=== PATIENT | male | born 1940 | race Caucasian/White ===

== ENCOUNTER → 2018-06-27 09:31 | Outpatient (CLI) | payer MEDICARE, OTHER, SELFPAY ==
--- NOTE | 2018-06-27 | DI.MRI.S_ITS ---
PROCEDURE: MR LUMBAR SPINE WO CON INDICATIONS: LOW BACK PAIN TECHNIQUE: Noncontrast sagittal T1 spin echo and T2 fast echo, sagittal STIR, axial T1 and T2 fast spin echo through the lumbar spine. In cases with scoliosis, additional coronal T2 fast spin echo may be performed. COMPARISON: None. FINDINGS: Image quality: Excellent. Alignment and Curvature: There is normal bony alignment. Bone Marrow: Marrow is of normal overall signal. There is 18 mm hypointensity on T1/T2 in the L2 vertebral body. No acute vertebral body compression fractures. Spinal Cord: Conus medullaris terminates at the L1 level. Visualized cord demonstrates normal signal and size. Paraspinous Soft Tissues: No paravertebral masses. Bilateral renal hyperintensities are present consistent with cysts. Discs: Moderate desiccation is present throughout the lumbar spine most severe at L5-S1. L1-L2: Minimal disc bulge without spinal stenosis or foraminal narrowing. L2-L3: Minimal disc bulge with a right asymmetric location causing compromise of the right lateral recess. There is mild to moderate right and minimal left foraminal narrowing with facet and ligamentum flavum hypertrophy. L3-L4: Mild disc bulge with mild to moderate spinal stenosis. Minimal to mild bilateral foraminal narrowing with facet and ligamentum flavum hypertrophy. L4-L5: Mild disc bulge with moderate spinal stenosis. Mild bilateral foraminal narrowing with facet and ligamentum flavum hypertrophy. L5-S1: Mild disc bulge with moderate spinal stenosis. Moderate bilateral foraminal narrowing with facet and ligamentum flavum hypertrophy. IMPRESSION: 1. Multilevel degenerative changes most prominent at L5-S1 as above. 2. Low attenuation focus within the L2 vertebral body. Overall signal is not characteristic of hemangioma. However, further evaluation with contrast study or bone scan is recommended, as etiology such as atypical hemangioma or potentially lesion such as neoplastic disease cannot be excluded. Dictated by: Geni Fields M.D. on 06/27/2018 at 13:28 Approved by: Geni Fields M.D. on 06/27/2018 at 13:56
== END ==
PROVIDERS: Visit Provider Orthopaedic Surgery
DX: M47.817 Spondylosis without myelopathy or radiculopathy, lumbosacral region (principal); M47.816 Spondylosis without myelopathy or radiculopathy, lumbar region; M48.07 Spinal stenosis, lumbosacral region; M48.061 Spinal stenosis, lumbar region without neurogenic claudication; M51.27 Other intervertebral disc displacement, lumbosacral region; M51.26 Other intervertebral disc displacement, lumbar region
CPT/HCPCS: 72148

== ENCOUNTER 2018-07-05 11:49 | Emergency (ER) | payer MEDICARE, OTHER, SELFPAY ==
[2018-07-05] VITALS (7 sets, daily range): BP systolic 125–158; BP diastolic 62–82; PULSE 57–67; RESP 13–22; TEMP 36.8; O2SAT 97–99; BMI 33.2
[2018-07-05] MEDS: SODIUM CHLORIDE 0.9% 1,000 ML 150 ML IV (12:07)
[2018-07-05 12:08] LABS: Add Manual Diff / Slide Review NO; Basophils Absolute Auto 0 /uL (0-100); Basophils Percent Auto 0.6 % (0-2); Eosinophils Absolute Auto 0 /uL (0-450); Eosinophils Percent Auto 0.4 % (2-4); Hematocrit 44.2 % (41-53); Hemoglobin 15.7 g/dL (13.5-17.5); Lymphocytes Absolute Auto 1200 /uL (1100-4500); Mean Corpuscular HGB Conc 35.4 % (30-36); Mean Corpuscular Hemoglobin 33.7 PG (26-34); Mean Corpuscular Volume 95.3 fL (80-100); Monocytes Absolute Auto 600 /uL (0-900); Monocytes Percent Auto 8.4 % (3-14); Neutrophils Absolute Auto 4700 /uL (1500-7000); Neutrophils Percent Auto 71.6 % (50-75); Platelet Count 192 X10^3/uL (150-400); Red Blood Cell Count 4.64 X10^6/uL (4.5-5.9); Red Cell Distribution Width 14.3 % (11.6-14.8); White Blood Cell Count 6.6 X10^3/uL (4.5-11.0)
[2018-07-05 12:20] LABS: BUN Creatinine Ratio 18.8 (6-22); Blood Urea Nitrogen 15 mg/dL (9-20); Calcium 9.3 mg/dL (8.4-10.2); Carbon Dioxide 29 mmol/L (22-32); Chloride 95 mmol/L (98-107); Estimated Glomerular Filt Rate > 60.0 mL/min (>60); Glucose 183 mg/dL (80-110); HEMOLYSIS 23 (0-50); Potassium 3.7 mmol/L (3.4-5.1); Sodium 137 mmol/L (137-145)
[2018-07-05 12:32] LABS: Troponin I < 0.012 ng/mL (0.01-0.034)
--- NOTE | 2018-07-05 13:01 | PC.NURSE ---
pt reports, woke up at 200am, getting out of bed, developed severe vertigo, crawled into the bathroom, back to bed and able to sleep, woke up at 8am still felling lightheaded. denies injuries. hx of stroke 2000 with no deficit. had left great toe ingrown 1/2 nail removed yesterday.
--- NOTE | 2018-07-05 13:19 | DI.CT.S_ITS ---
PROCEDURE: CT HEAD/BRAIN WO CON INDICATIONS: vertigo TECHNIQUE: Noncontrast 4.5 mm thick angled axial sections acquired from the foramen magnum to the vertex, with coronal and sagittal reformats. For radiation dose reduction, the following was used: automated exposure control, adjustment of mA and/or kV according to patient size. COMPARISON: None. FINDINGS: Image quality: Diagnostic. CSF spaces: Basal cisterns are patent. No extra-axial fluid collections. Ventricles are mildly prominent with corresponding parenchymal volume loss. Brain: No midline shift. No intracranial masses or hemorrhage. Garcia-white matter interface is normal. Areas of low-attenuation are seen within the periventricular white matter of the supratentorial brain. Skull and face: Calvarium and visualized facial bones are intact, without suspicious lesions. Sinuses: Visualized sinuses and mastoids are clear. IMPRESSION: 1. No acute intracranial hemorrhage. 2. Mild chronic small vessel ischemic changes and parenchymal volume loss. Dictated by: Shree Agudelo M.D. on 07/05/2018 at 12:47 Approved by: Shree Agudelo M.D. on 07/05/2018 at 12:48
--- NOTE | 2018-07-12 11:10 | ED_ITS ---
HPI - Dizziness General Chief Complaint: Dizziness Stated Complaint: DIZZY Time Seen by Provider: 07/05/18 11:58 Source: patient Mode of arrival: ambulatory Limitations: no limitations History of Present Illness HPI Narrative: Patient arrives with a friend complains of dizziness that started early this morning. Patient states he woke up in the night to go to the bathroom, and when he stood up, he suddenly felt as though the room was spinning. Patient states that he made it to the bathroom then went back to bed, but when he got up this morning for the day, he was still dizzy. Patient states that it is worse with certain head movements and with change of position. He states that if he is just sitting in the bed not moving, he does not feel dizzy. Patient denies any history of this previously. No headache. No focal neurologic deficits. No nausea or vomiting. no recent illness of any kind. Patient states he is active and that he has very few limitations to his activities generally. No other complaints at this time. Related Data Home Medications Medication Instructions Recorded Confirmed atorvastatin 40 mg PO DAILY 07/05/18 07/05/18 carvedilol 25 mg PO BID 07/05/18 07/05/18 chlorthalidone 25 mg PO DAILY 07/05/18 07/05/18 erythromycin 1 applic OPHTHALMIC (EYE) 07/05/18 07/05/18 DIRECTED felodipine 5 mg PO DAILY 07/05/18 07/05/18 folic acid 1 mg PO DAILY 07/05/18 07/05/18 methotrexate sodium 07/05/18 metronidazole [Metrogel] 07/05/18 omeprazole 20 mg PO DAILY 07/05/18 07/05/18 Previous Rx's Medication Instructions Recorded meclizine 25 mg PO BID PRN #10 tab 07/05/18 Allergies Allergy/AdvReac Type Severity Reaction Status Date / Time No Known Drug Allergies Allergy Verified 07/05/18 11:53 Review of Systems Constitutional Denies chills, Denies fever(s), Denies lethargy and Denies weakness Eyes Denies change in vision, Denies eye discharge, Denies irritation and Denies loss of vision ENT Ears, Nose, Mouth, and Throat: Denies change in voice, Reports vertigo, Reports dizziness, Denies neck pain and Denies sore throat Cardiovascular Denies chest pain, Denies irregular heart rhythm, Denies lightheadedness, Denies palpitations, Denies dyspnea, Denies dyspnea on exertion and Denies orthopnea Respiratory Denies cough, Denies dyspnea, Denies dyspnea on exertion and Denies wheezing Gastrointestinal Gastrointestinal: Denies abdominal pain, Denies change in bowel habits, Denies diarrhea, Denies nausea and Denies vomiting Genitourinary Denies hematuria, Denies flank pain, Denies urinary incontinence and Denies urinary urgency Musculoskeletal Denies neck pain Integumentary/Breasts Denies pruritus, Denies erythema, Denies rash and Denies wounds Neurologic Denies confusion, Reports vertigo, Reports dizziness, Denies loss of vision and Denies weakness Psychiatric Denies anxiety, Denies confusion, Denies depression, Denies homicidal ideation and Denies suicidal ideation Endocrine Denies palpitations Hematologic/Lymphatic Denies easy bruising Allergic/Immunologic Denies wheezing [facility] Medical History (Updated 07/12/18 @ 11:13 by Geovanna Herrera MD) Hyperlipidemia (Acute) HTN (hypertension) (Acute) Surgical History (Updated 07/12/18 @ 11:13 by Geovanna Herrera MD) No pertinent past surgical history (Acute) Social History (Updated 07/12/18 @ 11:14 by Geovanna Herrera MD) Smoking Status: Never smoker during the past year weight has: remained stable well-balanced diet: daily or most days Type(s) of exercise: walking Social History (Updated 07/12/18 @ 11:14 by Geovanna Herrera MD) Smoking Status: Never smoker during the past year weight has: remained stable well-balanced diet: daily or most days Type(s) of exercise: walking Exam Narrative Exam Narrative: Patient is found to be very well appearing overall, but does report some dizziness/vertigo with movement of his head or sitting up for exam. He is slightly unsteady on his feet, which he attributes to the spinning sensation. No nystagmus. Initial Vital Signs Initial Vital Signs: Vital Signs Temperature 98.2 F 07/05/18 11:57 Pulse Rate 67 07/05/18 11:57 Respiratory Rate 18 07/05/18 11:57 Blood Pressure 158/82 H 07/05/18 11:57 Pulse Oximetry 99 07/05/18 11:57 Const General: cooperative and well developed Nutritional Appearance: well nourished Orientation: alert, awake, oriented x3 and not confused HENMT Head: normocephalic and atraumatic Ears: external ears normal and TM's normal bilaterally Nose: external nose normal and No nasal discharge Face and sinus: face symmetric and No dry mucous membranes Mouth: oral mucosae normal and moist mucous membranes Teeth and gingiva: dentition normal Eyes General: appearance normal, both eyes and all related structures Eyelids: eyelids normal Conjunctivae: conjunctivae normal Sclera: sclerae normal Pupils: PERRL EOM: EOM intact bilaterally Neck Neck: normal visual inspection, trachea midline, No lymphadenopathy, No midline deformity and No JVD Lymphatic: No lymphedema Chest Chest: normal inspection of the chest Resp Effort & Inspection: normal respiratory effort, able to speak in complete sentences, no respiratory distress and no use of accessory muscles Auscultation: clear to auscultation bilaterally, no rales, no rhonchi and no wheezes Cardio Rate: regular rate Rhythm: regular rhythm Heart Sounds: no click, no gallops, no murmurs and no rubs Pulses: normal peripheral pulses GI Inspection: non-distended Palpation: soft, no hepatosplenomegaly, No guarding, No pulsatile mass and No tender Auscultation: normal bowel sounds Back/Spine/Pelvis Back: No CVA tenderness Cervical Spine: cervical ROM normal and No pain with cervical ROM Thoracic/Lumbar Spine: thoracic and lumbar spine normal to inspection Skin General: no rashes or lesions noted, No jaundice and No petechiae Neuro General: alert, awake, oriented x3, gait abnormal (Patient has slight gait unsteadiness) and no focal motor deficits Cranial Nerves: CN's II-XI intact bilaterally Cognition: normal cognition Speech: speech normal Motor: muscle tone normal throughout and strength 5/5 throughout Sensory Exam: no sensory deficits noted Coordination: other (Patient's general coordination is intact without limitation) Extrem General: full ROM, no clubbing, cyanosis or edema, no pedal edema and no calf tenderness Psych Appearance: well kempt Mental Status: mental status grossly normal Attitude: cooperative Thought Content: normal and suicidality Judgment: judgment good Course Course Narrative: Patient was worked up with labs, EKG, and CT scan of the head, which were generally unremarkable. CT did show evidence of small-vessel disease, but was otherwise without evidence of acute infarct. Patient was treated symptomatically with IV and medications, and was found to be feeling somewhat better after this. He still had some vertigo associated with movement, though this had improved. Patient was able to ambulate on his own, though he was still slightly unsteady on his feet, which he attributed to a ?dizzy? feeling in his head. He still denied weakness in his legs or difficulty coordinating his movements. I discussed with the patient that most likely, his symptoms are due to a benign, peripheral source of vertigo as opposed to central vertigo, and as such, will likely resolve on their own without incident. We have discussed home management of the symptoms, as well as the usual indications for return. Patient's friends are here to take him home. Orders Ordered: Discontinued Medications Sodium Chloride (Normal Saline 0.9%) 1,000 mls @ 150 mls/hr IV CONT AL Last Infusion: 07/05/18 15:09 Dose: 0 mls/hr Admin: 07/05/18 12:07 Dose: 150 mls/hr Vital Signs - 8 hr 07/05/18 11:57 07/05/18 12:30 07/05/18 13:00 Temperature 98.2 F Pulse Rate 67 63 66 Respiratory Rate 18 16 22 Blood Pressure [Left Arm] 158/82 H 133/78 125/62 Pulse Oximetry 99 98 97 MDM - Dizziness Medical Records Attestation: I reviewed the patient's medical records. Lab Data Attestation: I reviewed the patient's lab results. Result diagrams: 07/05/18 12:00 07/05/18 12:00 Lab Results 07/05/18 07/05/18 Range/Units 12:00 12:00 WBC 6.6 (4.5-11.0) X10^3/uL RBC 4.64 (4.5-5.9) X10^6/uL Hgb 15.7 (13.5-17.5) g/dL Hct 44.2 (41-53) % MCV 95.3 (80-100) fL MCH 33.7 (26-34) PG MCHC 35.4 (30-36) % RDW 14.3 (11.6-14.8) % Plt Count 192 (150-400) X10^3/uL Neut % (Auto) 71.6 (50-75) % Lymph % (Auto) 19.0 L (25-40) % [place] % (Auto) 8.4 (3-14) % Eos % (Auto) 0.4 L (2-4) % Baso % (Auto) 0.6 (0-2) % Neut # (Auto) 4700 (9815-7106) /uL Lymph # (Auto) 1200 (0604-9353) /uL [place] # (Auto) 600 (0-900) /uL Eos # (Auto) 0 (0-450) /uL Baso # (Auto) 0 (0-100) /uL Sodium 137 (137-145) mmol/L Potassium 3.7 (3.4-5.1) mmol/L Chloride 95 L (98-107) mmol/L Carbon Dioxide 29 (22-32) mmol/L BUN 15 (9-20) mg/dL Creatinine 0.80 (0.66-1.25) mg/dL Estimated GFR > 60.0 (>60) mL/min BUN/Creatinine Ratio 18.8 (6-22) Glucose 183 H (80-110) mg/dL Calcium 9.3 (8.4-10.2) mg/dL Troponin I < 0.012 (0.01-0.034) ng/mL Imaging Data CT scan - head: Radiologist's impression: PROCEDURE: CT HEAD/BRAIN WO CON INDICATIONS: vertigo TECHNIQUE: Noncontrast 4.5 mm thick angled axial sections acquired from the foramen magnum to the vertex, with coronal and sagittal reformats. For radiation dose reduction, the following was used: automated exposure control, adjustment of mA and/or kV according to patient size. COMPARISON: None. FINDINGS: Image quality: Diagnostic. CSF spaces: Basal cisterns are patent. No extra-axial fluid collections. Ventricles are mildly prominent with corresponding parenchymal volume loss. Brain: No midline shift. No intracranial masses or hemorrhage. Garcia-white matter interface is normal. Areas of low-attenuation are seen within the per iventricular white matter of the supratentorial brain. Skull and face: Calvarium and visualized facial bones are intact, without suspicious lesions. Sinuses: Visualized sinuses and mastoids are clear. IMPRESSION: 1. No acute intracranial hemorrhage. 2. Mild chronic small vessel ischemic changes and parenchymal volume loss. Dictated by: Shree Agudelo M.D. on 07/05/2018 at 12:47 Approved by: Shree Agudelo M.D. on 07/05/2018 at 12:48 ECG Data Attestation: I personally reviewed and interpreted this ECG as follows: Prior ECG tracings: not available for review Interpretation: Interpretation by ED MD: Regular ventricular rhythm with a nor mal rate; KS intervals are normal and correlating well with QRS complexes; no significant ST T wave changes; no prior EKGs available for comparison. In summary, normal sinus rhythm, no signs of acute ischemia as interpreted by ED MD. Discharge Plan Departure Patient Disposition: Home Clinical Impression: Benign paroxysmal positional vertigo Qualifiers: Laterality: unspecified laterality Qualified Code(s): H81.10 - Benign paroxysmal vertigo, unspecified ear Discharge Date/Time: 07/05/18 15:10 Interventions: ED Discharge Assessment Last Done: 07/05/18 15:10 Instructions: DI for Vertigo Activity Restrictions/Additional Instructions: Your labs and CT scan looked good. There is no evidence of an acute stroke or other cause of your symptoms in your brain. However, there is evidence that you have had some mild ischemic (lack of blood flow/oxygen) change in the past, most likely due to clogging of your small arteries. The most important ways to prevent development of a more significant stroke are to eat a low cholesterol diet, to continue your Lipitor and to take an aspirin daily. 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 These can cause stimulation of your movements sensing nerves, resulting in inappropriate signaling to your brain. Generally, this kind of vertigo will calm down on its own, but can reoccur from time to time. If you continue to have problems with it, you will need to follow up with an ENT specialist. Prescriptions: New meclizine 25 mg tablet 25 mg PO BID PRN (Reason: dizziness) Qty: 10 RF: 0 No Action atorvastatin 40 mg tablet 40 mg PO DAILY RF: 0 carvedilol 25 mg tablet 25 mg PO BID RF: 0 felodipine 5 mg tablet extended release 24 hr 5 mg PO DAILY RF: 0 chlorthalidone 25 mg tablet 25 mg PO DAILY RF: 0 methotrexate sodium 2.5 mg tablet RF: 0 erythromycin 5 mg/gram (0.5 %) ointment 1 applic ophthalmic (eye) DIRECTED RF: 0 omeprazole 20 mg capsule,delayed release(DR/EC) 20 mg PO DAILY RF: 0 folic acid 1 mg tablet 1 mg PO DAILY RF: 0 metronidazole [Metrogel] 1 % gel RF: 0 Referrals: Robbie Tejada MD [Primary Care Provider] -
== END 2018-07-05 15:10 | disposition home or self-care (01) ==
PROVIDERS: Emergency Provider Emergency Medicine; PCP Internal Medicine
DX: H81.10 Benign paroxysmal vertigo, unspecified ear (principal)
CPT/HCPCS: 36591; 70450; 80048; 84484; 85025; 93005; 96360; 96361; 99283; 99285

== ENCOUNTER 2019-10-22 19:11 | Inpatient (IN) | payer MEDICARE, OTHER, SELFPAY ==
[2019-10-22] VITALS (11 sets, daily range): BP systolic 149–167; BP diastolic 75–90; PULSE 102–129; RESP 15–30; TEMP 36.9; O2SAT 95–97; BMI 33.2
--- NOTE | 2019-10-22 | DI.ECHO.S_ITS ---
[facility] +---------+ [facility] +---------+ : : [address] : : : : [id number] : : : : Phone: [phone] Echocardiogram Report + + :Name: KALI LEIGH Study Date: 10/23/2019 Height: 72 in : :[facility] Weight: 245 lb : : Gender: Male BSA: 2.3 m2 : :: 1940 Age: 78 yrs BP: 135/87 mmHg: :Reason For Study: RIGHT FRONTAL CVA : :Ordering Physician: Rosio : :Hospitalist Performed By: Romi Jules : :Referring: LOGAN LEONARD : + + Interpretation Summary Left ventricular systolic function remains normal with an estimated ejection fraction of 60 to 65% without any obvious focal wall motion abnormality and appears unchanged from the previous study. There continues to be mild concentric LVH. Diastolic function cannot be accurately assessed although there is some evidence for increased filling pressures. The right ventricle is borderline enlarged with systolic function at the lower limits of normal but appears unchanged from the previous exam. Right ventricular systolic pressure is estimated at 36 mmHg with a CVP of 8 mmHg, and is likely similar to the previous study. The left atrium is mildly enlarged while the right atrium is normal in size. Both have decreased in size since the previous study. There is mild to moderate mitral regurgitation that is slightly more prominent compared to the previous study. There is mild tricuspid regurgitation that is slightly less prominent. The aortic root and ascending aorta are mildly enlarged but similar to the previous study. The aortic arch could not be visualized. The patient was in an irregular rhythm, possibly reflecting atrial fibrillation but clinical correlation is recommended. This was new compared to the previous study. Procedure: A two-dimensional transthoracic echocardiogram with color flow and Doppler was performed. The study quality was technically difficult. Comparison is made with the echocardiogram of 04/14/2015. The patient was in an irregular rhythm during the exam. The heart rate ranged between 62-75 bpm during the study. The patient had occasional PACs during the exam. Left Ventricle: The left ventricle is normal in size. There is mild concentric left ventricular hypertrophy. Left ventricular systolic function is normal without focal wall motion abnormalities. The ejection fraction is estimated to be 60-65%. This is unchanged compared to the previous study. Diastolic function could not be accurately assessed due to contradictory data. Cannot exclude increased filling pressures. Right Ventricle: The right ventricle is at the upper limits of normal in size. Right ventricular systolic function is at the lower limits of normal. This is unchanged compared to the previous study. Atria: The left atrium is mildly dilated. This is decreased compared to the previous study. Right atrial size is normal. There is no Doppler evidence for an interatrial shunt. Mitral Valve: There is mild mitral annular calcification. There is mild to moderate mitral regurgitation. This is slightly more promient compared to the previous study. Aortic Valve: The aortic valve is trileaflet. The aortic valve is slightly calcified. The aortic valve opens well. There is no aortic valve stenosis. There is trace aortic regurgitation. Tricuspid Valve: The tricuspid valve is normal in structure and function. There is mild tricuspid regurgitation. This is slightly less prominent compared to the previous study. The right ventricular systolic pressure is estimated to be at least 36 mmHg based on an estimated right atrial pressure of 8 mm Hg. Pulmonic Valve: The pulmonic valve is not well visualized. There is mild pulmonic regurgitation. This is unchanged compared to the previous study. Great Vessels: The aortic root is mildly dilated. This is unchanged compared to the previous study. The ascending aorta is mild-moderately enlarged. The aortic arch could not be visualized. The IVC is dilated (diameter is greater than 2.1 cm) yet it collapses greater than 50% with a sniff. This suggests a right atrial pressure of 8 mm Hg. Pericardium/ Pleura There is no pericardial effusion. There is no pleural effusion. MMode/2D Measurements & Calculations LVIDd: 4.9 cm LVOT diam: 2.4 cm LVIDs: 3.5 cm Ao root diam: 3.7 cm FS: 29.1 % asc Aorta Diam: 3.8 cm EPSS: 0.34 cm IVSd: 1.1 cm LVPWd: 0.95 cm LV thurman. diameter/BSA (cm/m^2): 2.1 LV sys. diameter/BSA (cm/m^2): 1.5 LA A2 area: 23.6 cm2 RA long axis: 6.0 cm LA A4 area: 25.2 cm2 RA area: 17.9 cm2 LA length (vol): 6.1 cm RA vol: 45.8 ml LA vol: 83.5 ml RA : 19.7 ml/m2 LA vol index: 36.0 ml/m2 IVC diam: 2.1 cm RVD1 (basal): 4.0 cm TAPSE: 1.7 cm Doppler Measurements & Calculations Ao V2 max: 128.4 cm/sec LVOT Max Stuart: 122.3 cm/sec Ao V2 mean: 84.1 cm/sec LV V1 max P.0 mmHg Ao max P.6 mmHg LV V1 VTI: 22.7 cm Ao mean P.3 mmHg AGUSTO(I,D): 3.7 cm2 Ao V2 VTI: 27.2 cm AGUSTO(V,D): 4.2 cm2 sev ratio: 0.84 AGUSTO indexed to BSA (cm^2/m^2): 1.6 MV E max stuart: 109.7 cm/sec TR max stuart: 268.4 cm/sec MV A max stuart: 43.3 cm/sec TR max P.8 mmHg MV E/A: 2.5 PA V2 max: 88.8 cm/sec Med Peak E' Stuart: 5.6 cm/sec PA V2 mean: 54.4 cm/sec E/E' med: 19.6 PA mean P.4 mmHg Lat Peak E' Stuart: 9.3 cm/sec PA pr(Accel): 20.8 mmHg E/E' lat: 11.8 E/e' average: 15.7 MV dec time: 0.18 sec SV(LVOT): 101.1 ml Reading Physician:01:35 PM
--- NOTE | 2019-10-22 19:18 | DI.CT.S_ITS ---
PROCEDURE: CT HEAD/BRAIN WO CON INDICATIONS: altered mental status, stroke symptoms x2 days NO TPA TECHNIQUE: Noncontrast 4.5 mm thick angled axial sections acquired from the foramen magnum to the vertex, with coronal and sagittal reformats. For radiation dose reduction, the following was used: automated exposure control, adjustment of mA and/or kV according to patient size. COMPARISON: [facility], CT, CT HEAD/BRAIN WO CON, 07/05/2018, 13:21. FINDINGS: Image quality: Excellent. CSF spaces: Basal cisterns are patent. No extra-axial fluid collections. The ventricles are symmetric in size and shape. Brain: Hypodensity in the right frontal lobe is consistent with acute cerebral infarction. Possible tiny hemorrhage in the right frontal lobe involving the inferior aspect of the infarcted territory. No intracranial masses. There is moderate cerebral volume loss for age, with resultant ventricular and sulcal prominence. There are moderate periventricular and deep white matter chronic small vessel ischemic changes. There is intracranial internal carotid artery atherosclerosis. Skull and face: Calvarium and visualized facial bones appear intact, without suspicious lesions. Sinuses: Visualized sinuses and mastoids are clear. IMPRESSION: 1. Subacute infarction in right frontal lobe. Possible tiny foci of early hemorrhagic transformation in the inferior aspect of the infarcted territory. No significant mass effect or midline shift. 2. Cerebral volume loss and chronic microvascular ischemic changes. The result was discussed with Dr. Aguilera. Dictated by: Yari Casas M.D. on 10/22/2019 at 20:01 Approved by: Yari Casas M.D. on 10/22/2019 at 20:06
--- NOTE | 2019-10-22 19:24 | ED.NEUROSD ---
HPI - Neuro Symptoms/Deficit General Chief Complaint: Neuro Symptoms/Deficit Stated Complaint: spouse thinks possible stroke Time Seen by Provider: 10/22/19 19:11 Source: patient and family Mode of arrival: Ambulatory Limitations: no limitations History of Present Illness HPI Narrative: 78-year-old male nonsmoker with history of hypertension reports a remote history of an irregular rhythm presents with a neighbor who is concerned he may have had a stroke. He was last seen normal about 2 days ago and when he went to meet his neighbor today he seemed confused and was struggling to communicate. He denies any blurred vision or facial droop. He denies any numbness, tingling or weakness of extremities. He denies any recent injury or trauma. He has had no change in medications or diet. He denies any history of stroke, heart attack, or blood thinner. Location: other History of same: No Severity: mild Relieving factors: none On Anticoagulants: No Associated symptoms: confusion Treatments Prior to Arrival: none Related Data Home Medications Medication Instructions Recorded Confirmed atorvastatin 40 mg PO DAILY 07/05/18 07/05/18 carvedilol 25 mg PO BID 07/05/18 07/05/18 chlorthalidone 25 mg PO DAILY 07/05/18 07/05/18 erythromycin 1 applic OPHTHALMIC (EYE) 07/05/18 07/05/18 DIRECTED felodipine 5 mg PO DAILY 07/05/18 07/05/18 folic acid 1 mg PO DAILY 07/05/18 07/05/18 methotrexate sodium 07/05/18 metronidazole [Metrogel] 07/05/18 omeprazole 20 mg PO DAILY 07/05/18 07/05/18 Previous Rx's Medication Instructions Recorded meclizine 25 mg PO BID PRN #10 tab 07/05/18 Allergies Allergy/AdvReac Type Severity Reaction Status Date / Time No Known Drug Allergies Allergy Verified 10/22/19 19:22 Review of Systems Constitutional Constitutional: Denies chills, Denies fatigue, Denies fever(s), Denies frequent falls, Denies lethargy and Denies weakness Eyes Eyes: Denies change in vision, Denies eye discharge, Denies irritation and Denies loss of vision ENT Ears, Nose, Mouth, and Throat: Denies change in voice, Denies dizziness, Denies neck pain, Denies sore throat and Denies throat swelling Cardiovascular Cardiovascular: Denies chest pain, Denies irregular heart rhythm, Denies lightheadedness, Denies palpitations, Denies dyspnea, Denies dyspnea on exertion and Denies orthopnea Respiratory Respiratory: Denies cough, Denies dyspnea, Denies dyspnea on exertion and Denies wheezing Gastrointestinal Gastrointestinal: Denies abdominal pain, Denies change in bowel habits, Denies diarrhea, Denies nausea and Denies vomiting Musculoskeletal Musculoskeletal: Denies neck pain and Denies numbness Integumentary/Breasts Skin/Breast: Denies pruritus, Denies erythema, Denies rash and Denies wounds Neurologic Neurologic: Reports abnormal speech, Denies behavioral changes, Denies confusion, Denies dizziness, Denies frequent falls, Denies loss of vision, Denies numbness and Denies weakness Psychiatric Psychiatric: Denies anxiety, Denies behavioral changes, Denies confusion, Denies depression, Denies homicidal ideation and Denies suicidal ideation Endocrine Endocrine: Denies fatigue, Denies flushing and Denies palpitations Hematologic/Lymphatic Hematologic/Lymphatic: Denies easy bruising Allergic/Immunologic Allergic/Immunologic: Denies urticaria, Denies throat swelling and Denies wheezing Patient History Medical History (Updated 10/23/19 @ 00:58 by EDDIE Napoles) GERD (gastroesophageal reflux disease) (Acute) HTN (hypertension) (Chronic) Hyperlipidemia (Acute) Surgical History No pertinent past surgical history (Acute) Social History household members: none Smoking Status: Never smoker during the past year weight has: remained stable well-balanced diet: daily or most days Type(s) of exercise: walking Smoking Status: Never smoker Exam Narrative Exam Narrative: GENERAL: [78] year old patient appears stated age. Well-nourished, well-developed patient, in mild distress. HEAD: Atraumatic. Normocephalic. EYES: Pupils equal round and reactive. Extraocular motions intact. No scleral icterus. No injection or drainage. ENT: Nose without bleeding, purulent drainage. Throat without erythema, tonsillar hypertrophy or exudate. Airway patent. NECK: Trachea midline. Non tender CARDIOVASCULAR: Regular rate and rhythm without murmurs, gallops, or rubs. RESPIRATORY: Clear to auscultation. Breath sounds equal bilaterally. No wheezes, rales, or rhonchi. GASTROINTESTINAL: Abdomen soft, non-tender, nondistended. EXTREMITIES: No edema or joint tenderness. BACK: Nontender without deformity or crepitance. No flank tenderness. NEURO: AOx3. SKIN: No rash or erythema of visible areas Initial Vital Signs Initial Vital Signs: Vital Signs Temperature 98.4 F 10/22/19 19:22 Pulse Rate 102 H 10/22/19 19:22 Respiratory Rate 15 10/22/19 19:22 Blood Pressure 167/81 H 10/22/19 19:22 Pulse Oximetry 95 10/22/19 19:22 Scores NIH Stroke Scale Level of Conciousness: Alert, keenly responsive Ask month/age: Answers both questions correctly. Open/close eyes, close hand: Performs both tasks correctly Best gaze horizontal: Normal Visual eric: No visual loss Facial palsy: Normal symetrical movement Left arm drift: No drift for full 10 sec Right arm drift: No drift for full 10 sec Left leg drift: No drift for full 10 sec Right leg drift: No drift for full 10 sec Limb ataxia: Absent Sensory on face/arms/legs: Normal, no sensory loss Best language: Mild to moderate, slurs some words Dysarthria: Normal Extinction or inattention: No abnormality Total NIH Stroke scale score: 1 Course Course Course Narrative: patient worked up for stroke, but not TPA or interventional candidate given time frame and lack of large vessel occlusion. Consultation with [facility]. They are in agreement with plan. After discussion of case and viewing images they state mention of possible hemorrhagic conversion on Head CT is very unlikely and should not be considered a reason to go down a different path of treatment and evaluation. Further discussion regarding whether possible meningioma is playing a roll they respond quickly no, this is likely an incidental finding. Orders Ordered: ED Orders 10/22/19 19:18 CT head/brain wo con Stat EKG-12 Lead Stat 10/22/19 19:25 Complete Blood Count AUTO DIFF Stat Comprehensive Metabolic Panel Stat D Dimer Stat Partial Thromboplastin Time Stat Prothrombin Time INR Stat Troponin & CK Cardiac Panel Stat 10/22/19 20:05 CT angio head and neck Stat 10/22/19 20:15 Urine Drug Screen, Rapid Stat Acetaminophen (Tylenol) 650 mg PO Q4HR PRN PRN Reason: Fever/Mild Pain (1-3) Atorvastatin Calcium (Lipitor) 40 mg PO BEDTIME [facility] Last Admin: 10/23/19 01:15 Dose: 40 mg Documented by: BLANCA Sodium Chloride (Normal Saline 0.9%) 1,000 mls @ 150 mls/hr IV CONT [facility] Last Infusion: 10/22/19 22:35 Dose: 0 mls/hr Documented by: Admin: 10/22/19 20:05 Dose: 150 mls/hr Documented by: LOLIS Sodium Chloride (Normal Saline 0.9%) 1,000 mls @ 100 mls/hr IV CONT [facility] Last Admin: 10/23/19 01:16 Dose: 100 mls/hr Documented by: BLANCA Labetalol HCl (Trandate) 10 mg IV Q4HR PRN PRN Reason: Blood Sugar - High Naloxone HCl (Narcan) 0.2 mg IV Q2MIN PRN PRN Reason: Opiate Reversal Ondansetron HCl (Zofran) 4 mg IV Q6HR PRN PRN Reason: Nausea And Vomiting Discontinued Medications Acetaminophen (Tylenol) 650 mg PO Q6HR PRN PRN Reason: Fever/Mild Pain (1-3) Carvedilol (Coreg) 3.125 mg PO NOW ONE Stop: 10/23/19 03:00 Vital Signs Vital signs: Vital Signs - 8 hr 10/22/19 20:00 10/22/19 20:11 10/22/19 20:34 Pulse Rate 126 H 127 H 123 H Respiratory Rate 26 H 25 H Blood Pressure 162/90 H Pulse Oximetry 96 95 97 10/22/19 21:00 10/22/19 21:30 10/22/19 22:00 Pulse Rate 126 H 127 H 128 H Respiratory Rate 22 23 Blood Pressure Pulse Oximetry 96 96 10/22/19 22:10 Pulse Rate 126 H Respiratory Rate 20 Blood Pressure 149/75 H Pulse Oximetry 96 MDM - Neuro Symptoms/Deficit Lab Data Result diagrams: 10/22/19 19:25 10/22/19 19:25 Labs: Lab Results 10/22/19 10/22/19 10/22/19 Range/Units 19:25 19:25 19:25 WBC 10.1 (4.5-11.0) X10^3/uL RBC 4.47 L (4.5-5.9) X10^6/uL Hgb 15.8 (13.5-17.5) g/dL Hct 44.1 (41-53) % MCV 98.6 (80-100) fL MCH 35.4 H (26-34) PG MCHC 35.9 (30-36) % RDW 14.1 (11.6-14.8) % Plt Count 197 (150-400) X10^3/uL Neut % (Auto) 79.1 H (50-75) % Lymph % (Auto) 14.2 L (25-40) % [place] % (Auto) 5.8 (3-14) % Eos % (Auto) 0.5 L (2-4) % Baso % (Auto) 0.4 (0-2) % Neut # (Auto) 8000 H (2774-8852) /uL Lymph # (Auto) 1400 (6880-0235) /uL [place] # (Auto) 600 (0-900) /uL Eos # (Auto) 100 (0-450) /uL Baso # (Auto) 0 (0-100) /uL PT 11.9 (10.1-12.7) SECONDS INR 1.0 (0.9-1.3) APTT 29 (26.4-36.2) SECONDS D-Dimer (<230) ng/mL Sodium 136 L (137-145) mmol/L Potassium 3.5 (3.4-5.1) mmol/L Chloride 98 (98-107) mmol/L Carbon Dioxide 28 (22-32) mmol/L BUN 14 (9-20) mg/dL Creatinine 0.87 (0.66-1.25) mg/dL Estimated GFR > 60.0 (>60) mL/min BUN/Creatinine Ratio 16.1 (6-22) Glucose 177 H (80-110) mg/dL Hemoglobin A1c (4.0-6.0) % Calcium 9.7 (8.4-10.2) mg/dL Total Bilirubin 1.2 (0.2-1.3) mg/dL AST 37 (17-59) IU/L ALT 33 (<50) IU/L Alkaline Phosphatase 98 (38-126) U/L Total Creatine Kinase 55 (55-170) U/L CK-MB (CK-2) TNP CK-MB (CK-2) Rel Index TNP Troponin I < 0.012 (0.01-0.034) ng/mL Total Protein 8.1 (6.3-8.2) g/dL Albumin 4.4 (3.5-5.0) g/dL Globulin 3.7 (1.7-4.1) g/dL Albumin/Globulin Ratio 1.2 (1.0-2.8) U Opiates 300ng/mL cut (Negative) Ur Oxycodone Screen (Negative) Urine Methadone Screen (Negative) Ur Barbiturates Screen (Negative) U Tricyclic Antidepress (Negative) Ur Phencyclidine Scrn (Negative) Ur Amphetamines Screen (Negative) U Methamphetamines Scrn (Negative) Ur MDMA Scrn (Ecstasy) (Negative) U Benzodiazepines Scrn (Negative) Urine Cocaine Screen (Negative) U Marijuana (THC) Screen (Negative) 10/22/19 10/22/19 10/22/19 Range/Units 19:25 19:25 20:15 WBC (4.5-11.0) X10^3/uL RBC (4.5-5.9) X10^6/uL Hgb (13.5-17.5) g/dL Hct (41-53) % MCV (80-100) fL MCH (26-34) PG MCHC (30-36) % RDW (11.6-14.8) % Plt Count (150-400) X10^3/uL Neut % (Auto) (50-75) % Lymph % (Auto) (25-40) % [place] % (Auto) (3-14) % Eos % (Auto) (2-4) % Baso % (Auto) (0-2) % Neut # (Auto) (2479-1360) /uL Lymph # (Auto) (8545-2691) /uL [place] # (Auto) (0-900) /uL Eos # (Auto) (0-450) /uL Baso # (Auto) (0-100) /uL PT (10.1-12.7) SECONDS INR (0.9-1.3) APTT (26.4-36.2) SECONDS D-Dimer 419 H (<230) ng/mL Sodium (137-145) mmol/L Potassium (3.4-5.1) mmol/L Chloride (98-107) mmol/L Carbon Dioxide (22-32) mmol/L BUN (9-20) mg/dL Creatinine (0.66-1.25) mg/dL Estimated GFR (>60) mL/min BUN/Creatinine Ratio (6-22) Glucose (80-110) mg/dL Hemoglobin A1c 6.1 H (4.0-6.0) % Calcium (8.4-10.2) mg/dL Total Bilirubin (0.2-1.3) mg/dL AST (17-59) IU/L ALT (<50) IU/L Alkaline Phosphatase (38-126) U/L Total Creatine Kinase (55-170) U/L CK-MB (CK-2) CK-MB (CK-2) Rel Index Troponin I (0.01-0.034) ng/mL Total Protein (6.3-8.2) g/dL Albumin (3.5-5.0) g/dL Globulin (1.7-4.1) g/dL Albumin/Globulin Ratio (1.0-2.8) U Opiates 300ng/mL cut Negative (Negative) Ur Oxycodone Screen Negative (Negative) Urine Methadone Screen Negative (Negative) Ur Barbiturates Screen Negative (Negative) U Tricyclic Antidepress Negative (Negative) Ur Phencyclidine Scrn Negative (Negative) Ur Amphetamines Screen Negative (Negative) U Methamphetamines Scrn Negative (Negative) Ur MDMA Scrn (Ecstasy) Negative (Negative) U Benzodiazepines Scrn Negative (Negative) Urine Cocaine Screen Negative (Negative) U Marijuana (THC) Screen Negative (Negative) Point of Care Testing Glucose POC 169 Urine Dip Bedside Urine Glucose Negative Bedside Urine Bilirubin - Negative Urine Specific Felt 1.015 Bedside Urine Occult Blood - Negative Bedside Urine pH 7.0 Bedside Urine Protein - Negative Bedside Urine Urobilinogen 1+ 2mg Bedside Urine Nitrite - Negative Bedside Urine Leukocytes - Negative Esterase Imaging Data CT scan - head: Radiologist's Impression: Chart Viewer Diagnostics DATE TYPE STATUS REF RANGE/AUTHOR Hx 10/22/19 20:05 Maco Casas 10/22/19 19:18 Maco Casas 07/05/18 13:19 Shree Agudelo 07/05/18 11:49 06/27/18 00:00 Geni Fields Dennis J 78, M1940 ADM IN, AC 215 -1 182.88cm 111.5kg BMI: 33.3kg/m? Search Chart No Data to Display ONSET Today 01:00 Brandon Duron 78 M [address] [address] [address] Scan Report Signed Patient: Brandon Duron JMR#: [id number] : [id number]:[id number] Age/Sex: 78 / MDate of Service: 10/22/19 Loc: ED Accession Number: [id number] Procedure: CT head/brain wo con Ordering Provider: Willian Aguilera D.O. PROCEDURE: CT HEAD/BRAIN WO CON INDICATIONS: altered mental status, stroke symptoms x2 days NO TPA TECHNIQUE: Noncontrast 4.5 mm thick angled axial sections acquired from the foramen magnum to the vertex, with coronal and sagittal reformats. For radiation dose reduction, the following was used: automated exposure control, adjustment of mA and/or kV according to patient size. COMPARISON: [facility], CT, CT HEAD/BRAIN WO CON, 07/05/2018, 13:21. FINDINGS: Image quality: Excellent. CSF spaces: Basal cisterns are patent. No extra-axial fluid collections. The ventricles are symmetric in size and shape. Brain: Hypodensity in the right frontal lobe is consistent with acute cerebral infarction. Possible tiny hemorrhage in the right frontal lobe involving the inferior aspect of the infarcted territory. No intracranial masses. There is moderate cerebral volume loss for age, with resultant ventricular and sulcal prominence. There are moderate periventricular and deep white matter chronic small vessel ischemic changes. There is intracranial internal carotid artery atherosclerosis. Skull and face: Calvarium and visualized facial bones appear intact, without suspicious lesions. Sinuses: Visualized sinuses and mastoids are clear. IMPRESSION: 1. Subacute infarction in right frontal lobe. Possible tiny foci of early hemorrhagic transformation in the inferior aspect of the infarcted territory. No significant mass effect or midline shift. 2. Cerebral volume loss and chronic microvascular ischemic changes. The result was discussed with Dr. Aguilera. Dictated by: Yari Casas M.D. on 10/22/2019 at 20:01 Approved by: Yari Casas M.D. on 10/22/2019 at 20:06 CTA Head/Neck: Radiologist's Impression: Chart Viewer Diagnostics DATE TYPE STATUS REF RANGE/AUTHOR Hx 10/22/19 20:05 YesseniaMaco 10/22/19 19:18 YesseniaMaco 07/05/18 13:19 Shree Agudelo 07/05/18 11:49 06/27/18 00:00 Geni Fields Dennis J 78, M1940 ADM IN, AC 215 -1 182.88cm 111.5kg BMI: 33.3kg/m? Search Chart No Data to Display ONSET Today 01:00 Brandon Duron 78 M 1940 [place] [address] CT Scan Report Signed Patient: Brandon Duron JMR#: [id number] : [id number]:[id number] Age/Sex: 78 / MDate of Service: 10/22/19 Loc: ED Accession Number: [id number] Procedure: CT angio head and neck Ordering Provider: Willian Aguilera D.O. PROCEDURE: CT ANGIO HEAD AND NECK INDICATIONS: stroke, possible hemorrhagic conversion TECHNIQUE: Pre-contrast 4.5 mm thick sections acquired from the foramen magnum to the vertex. After the administration of intravenous contrast, 1 mm thick sections acquired from the aortic arch through the [place] of [place]. Post-contrast 4.5 mm thick sections then re-acquired from the foramen magnum to the vertex. 3-dimensional mfiyshl-svdiecpau-gnifapyazy (MIP) and/or volume rendering reformats were acquired of the central intracranial vasculature and neck separately. COMPARISON: [facility], CT, CT HEAD/BRAIN WO CON, 07/05/2018, 13:21. [facility], CT, CT HEAD/BRAIN WO CON, 10/22/2019, 19:32. FINDINGS: Image quality: Excellent. BRAIN: CSF spaces: Ventricles are normal in size and shape. Basal cisterns are patent. No extra-axial fluid collections. Brain: There is a 1.5 x 2.0 x 2.1 cm point cm extra-axial enhancing mass in the right frontal area, most likely a meningioma. Hypodensity in the right frontal lobe is consistent with acute infarct. No definitive intracranial hemorrhage. No midline shift. No intracranial bleeds or masses. Garcia-white matter interface appears intact. Skull and face: Calvarium and facial bones appear intact, without suspicious lesions. Orbits appear normal. Sinuses: Sinuses and mastoids are clear. HEAD CT ANGIOGRAPHY: Anterior circulation: Intracranial internal carotid arteries are normal in size and flow. The flow within the paired anterior cerebral arteries is normal and symmetric. The flow within the middle cerebral arteries is normal and symmetric. The anterior communicating artery is seen. No aneurysms are seen. Posterior circulation: Dominant left vertebral artery. 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 The basilar artery is normal. Flow within the posterior cerebral arteries is normal and symmetric. No aneurysms are seen. NECK CT ANGIOGRAPHY: Carotid system: The great vessels demonstrate a conventional anatomy as they arise from the aortic arch. The origins of the common carotid arteries appear patent. The common carotid arteries demonstrate normal caliber and courses. The bifurcation regions are both widely patent. The internal carotid arteries demonstrate normal calibers and courses. Posterior circulation: The origins of the vertebral arteries both appear widely patent. The more superior extracranial portions of both vertebral arteries also demonstrate normal courses and calibers. They join to form a normal appearing basilar artery. Soft tissues: Visualized neck soft tissues demonstrate no suspicious abnormalities. There is moderate emphysema. There are numerous cervical lymph nodes bilaterally. Largest lymph node in the right neck measures 1 cm. Bones: No suspicious bony lesions. Visualized cervical spine appears normally aligned. Severe degenerative disc disease in cervical spine. IMPRESSION: 1. Hypodensity in the right frontal lobe consistent with subacute infarction. No definitive hemorrhagic transformation in the infarcted territory. Prominent enhancing vessels in the within the is likely secondary to luxury perfusion. 2. A 1.5 x 2.0 x 2.1 cm extra-axial mass in the right frontal area, most likely a meningioma. A MRI is suggested for follow-up evaluation. 3. No high-grade stenosis or occlusion in anterior circulations. 4. Dominant left vertebral artery. 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 No high-grade stenosis or occlusion in posterior circulations. 5. No high-grade stenosis or occlusion in cervical carotid arteries bilaterally. 6. No high-grade stenosis or occlusion in cervical vertebral arteries bilaterally. 7. Numerous cervical lymph nodes bilaterally. The largest lymph node in the right neck measures 1 cm. This finding is nonspecific and may be secondary to infectious, inflammatory or neoplastic etiology. Recommend clinical correlation and follow up. Any quantitative measurements of stenosis were performed using NASCET criteria. Dictated by: Yari Casas M.D. on 10/22/2019 at 21:26 Approved by: Yari Casas M.D. on 10/22/2019 at 21:39 Discharge Plan Departure Patient Disposition: Admitted As Inpatient Clinical Impression: Cerebrovascular accident Qualifiers: CVA mechanism: unspecified Qualified Code(s): I63.9 - Cerebral infarction, unspecified Discharge Date/Time: 10/22/19 22:36 Referrals: Robbie Tejada MD [Primary Care Provider] - Admit Date/Time: 10/22/19 22:20 Admit Provider: Milagros Gibson
[2019-10-22 19:33] LABS: Add Manual Diff / Slide Review NO; Basophils Absolute Auto 0 /uL (0-100); Basophils Percent Auto 0.4 % (0-2); Eosinophils Absolute Auto 100 /uL (0-450); Eosinophils Percent Auto 0.5 % (2-4); Hematocrit 44.1 % (41-53); Hemoglobin 15.8 g/dL (13.5-17.5); Lymphocytes Absolute Auto 1400 /uL (1100-4500); Lymphocytes Percent Auto 14.2 % (25-40); Mean Corpuscular HGB Conc 35.9 % (30-36); Mean Corpuscular Hemoglobin 35.4 PG (26-34); Mean Corpuscular Volume 98.6 fL (80-100); Monocytes Absolute Auto 600 /uL (0-900); Monocytes Percent Auto 5.8 % (3-14); Neutrophils Absolute Auto 8000 /uL (1500-7000); Neutrophils Percent Auto 79.1 % (50-75); Platelet Count 197 X10^3/uL (150-400); Red Blood Cell Count 4.47 X10^6/uL (4.5-5.9); Red Cell Distribution Width 14.1 % (11.6-14.8); White Blood Cell Count 10.1 X10^3/uL (4.5-11.0)
[2019-10-22 19:44] LABS: Prothrombin Time 11.9 SECONDS (10.1-12.7)
[2019-10-22 19:47] LABS: Alanine Aminotransferase 33 IU/L (<50); Albumin 4.4 g/dL (3.5-5.0); Albumin Globulin Ratio 1.2 (1.0-2.8); Alkaline Phosphatase 98 U/L (38-126); Aspartate Aminotransferase 37 IU/L (17-59); BUN Creatinine Ratio 16.1 (6-22); Bilirubin Total 1.2 mg/dL (0.2-1.3); Blood Urea Nitrogen 14 mg/dL (9-20); Calcium 9.7 mg/dL (8.4-10.2); Carbon Dioxide 28 mmol/L (22-32); Chloride 98 mmol/L (98-107); Creatine Kinase 55 U/L (55-170); Estimated Glomerular Filt Rate > 60.0 mL/min (>60); Globulin 3.7 g/dL (1.7-4.1); Glucose 177 mg/dL (80-110); HEMOLYSIS < 15 (0-50); PTT Partial Thromboplastin Tim 29 SECONDS (26.4-36.2); Potassium 3.5 mmol/L (3.4-5.1); Sodium 136 mmol/L (137-145); Total Protein 8.1 g/dL (6.3-8.2)
[2019-10-22 19:59] LABS: Troponin I < 0.012 ng/mL (0.01-0.034)
[2019-10-22] MEDS: SODIUM CHLORIDE 0.9% 1,000 ML 150 ML IV (20:05)
--- NOTE | 2019-10-22 20:05 | DI.CT.S_ITS ---
PROCEDURE: CT ANGIO HEAD AND NECK INDICATIONS: stroke, possible hemorrhagic conversion TECHNIQUE: Pre-contrast 4.5 mm thick sections acquired from the foramen magnum to the vertex. After the administration of intravenous contrast, 1 mm thick sections acquired from the aortic arch through the [place] of [place]. Post-contrast 4.5 mm thick sections then re-acquired from the foramen magnum to the vertex. 3-dimensional scoykbp-itldskjzy-xwkloikovn (MIP) and/or volume rendering reformats were acquired of the central intracranial vasculature and neck separately. COMPARISON: [facility], CT, CT HEAD/BRAIN WO CON, 07/05/2018, 13:21. [facility], CT, CT HEAD/BRAIN WO CON, 10/22/2019, 19:32. FINDINGS: Image quality: Excellent. BRAIN: CSF spaces: Ventricles are normal in size and shape. Basal cisterns are patent. No extra-axial fluid collections. Brain: There is a 1.5 x 2.0 x 2.1 cm point cm extra-axial enhancing mass in the right frontal area, most likely a meningioma. Hypodensity in the right frontal lobe is consistent with acute infarct. No definitive intracranial hemorrhage. No midline shift. No intracranial bleeds or masses. Garcia-white matter interface appears intact. Skull and face: Calvarium and facial bones appear intact, without suspicious lesions. Orbits appear normal. Sinuses: Sinuses and mastoids are clear. HEAD CT ANGIOGRAPHY: Anterior circulation: Intracranial internal carotid arteries are normal in size and flow. The flow within the paired anterior cerebral arteries is normal and symmetric. The flow within the middle cerebral arteries is normal and symmetric. The anterior communicating artery is seen. No aneurysms are seen. Posterior circulation: Dominant left vertebral artery. 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 The basilar artery is normal. Flow within the posterior cerebral arteries is normal and symmetric. No aneurysms are seen. NECK CT ANGIOGRAPHY: Carotid system: The great vessels demonstrate a conventional anatomy as they arise from the aortic arch. The origins of the common carotid arteries appear patent. The common carotid arteries demonstrate normal caliber and courses. The bifurcation regions are both widely patent. The internal carotid arteries demonstrate normal calibers and courses. Posterior circulation: The origins of the vertebral arteries both appear widely patent. The more superior extracranial portions of both vertebral arteries also demonstrate normal courses and calibers. They join to form a normal appearing basilar artery. Soft tissues: Visualized neck soft tissues demonstrate no suspicious abnormalities. There is moderate emphysema. There are numerous cervical lymph nodes bilaterally. Largest lymph node in the right neck measures 1 cm. Bones: No suspicious bony lesions. Visualized cervical spine appears normally aligned. Severe degenerative disc disease in cervical spine. IMPRESSION: 1. Hypodensity in the right frontal lobe consistent with subacute infarction. No definitive hemorrhagic transformation in the infarcted territory. Prominent enhancing vessels in the within the is likely secondary to luxury perfusion. 2. A 1.5 x 2.0 x 2.1 cm extra-axial mass in the right frontal area, most likely a meningioma. A MRI is suggested for follow-up evaluation. 3. No high-grade stenosis or occlusion in anterior circulations. 4. Dominant left vertebral artery. 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 No high-grade stenosis or occlusion in posterior circulations. 5. No high-grade stenosis or occlusion in cervical carotid arteries bilaterally. 6. No high-grade stenosis or occlusion in cervical vertebral arteries bilaterally. 7. Numerous cervical lymph nodes bilaterally. The largest lymph node in the right neck measures 1 cm. This finding is nonspecific and may be secondary to infectious, inflammatory or neoplastic etiology. Recommend clinical correlation and follow up. Any quantitative measurements of stenosis were performed using NASCET criteria. Dictated by: Yari Casas M.D. on 10/22/2019 at 21:26 Approved by: Yari Casas M.D. on 10/22/2019 at 21:39
[2019-10-22 20:30] LABS: UR Morphine/Opiate cutoff 300 Negative (Negative); Ur Creatinine Normal (Normal); Ur Specific Gravity Normal (Normal); Urine Amphetamines Negative (Negative); Urine Barbiturates Negative (Negative); Urine Benzodiazepines Negative (Negative); Urine Cocaine Negative (Negative); Urine MDMA Negative (Negative); Urine Methadone Negative (Negative); Urine Methamphetamines Negative (Negative); Urine Oxycodone Negative (Negative); Urine Phencyclidine Negative (Negative); Urine Tetrahydrocannabinol Negative (Negative); Urine Tricyclic Antidepressant Negative (Negative); Urine pH Normal (Normal)
[2019-10-22 21:40] LABS: D Dimer 419 ng/mL (<230)
[2019-10-22 23:07] LABS: Hemoglobin A1C% w Est Avg Glu 6.1 % (4.0-6.0)
--- NOTE | 2019-10-22 23:30 | PC.NURSE ---
ADMIT TO FLOOR Report received from ED. Patient received at 2235. Pt A&Ox4. Having difficult finding words, communicating thoughts. Reports right frontal headache 06/20. Hypertensive and tachycardic. No orders received as of change of shift. Rapid COVID swab obtained and sent to lab. Report given to MARY MONK.
--- NOTE | 2019-10-22 23:48 | P.HP_ITS ---
History of Present Illness History of Present Illness Date Patient Seen: 10/22/19 Time Patient Seen: 23:49 Chief complaint: Friend thinks possible stroke Narrative: Brandon Duron is an 78-year-old male with hypertension, hyperlipidemia, and GERD, was last seen ?normal? 2 days ago and was brought in by his neighbor today for difficulty speaking. It is difficult to obtain a history from him even though his speech is clear. He does have a delayed response to questions and seems to have word-finding problems currently. Of history is obtained from the medical record and of the current workup. Per the emergency room provider the patient was in his usual state of health as of 2 days ago and was out having dinner with a friend cristal when she noticed that he was having difficulty speaking. She brought him in and the stroke protocol was invoked. I was able to reach who I feel is his significant other, Alyssa and she states that he has not been himself for at least a couple of weeks but it seemed to get really bad over the last 2 days. They were together at her house at about 330 this afternoon and he left in his car where she later found him in his car asleep at the end of her driveway. She banged on the window and woke him up and said we are not going to dinner and till 5:30 p.m. They did have dinner and she told him that she needed to take him to the hospital that he was not acting like his normal self. She said that he did not resist her driving him in his car to the hospital. His friend has a copy of his medication list which is in his wallet now at his home and has contact information for both of his adult children and will be bringing that information to the hospital in the morning. While in the ED, he underwent a brain CT and a CT angio imaging studies. He was found to have a hypodensity in the right frontal lobe consistent with subacute infarction. .Initial CT scan indicated Possible tiny foci of early hemorrhagic transformation in the inferior aspect of the infarcted territory. This was followed by the CTA finding of No definitive hemorrhagic transformation in the infarcted territory. He was also found to have a A 1.5 x 2.0 x 2.1 cm extra-axial mass in the right frontal area, most likely a meningioma and recommended followup MRI. ED NIH score was 1, temp 98.5?, blood pressure 151/90, heart rate 129, respiratory rate 20, oxygen saturation of 90% on room air, weight 111.5, BMI 33.3. WBC 10.1, RBC 4.47, hemoglobin 15.8, platelet count 197, D-dimer was 419 which is normal for his age sodium 136, potassium 3.5, chloride 98, CO2 28, BUN 14, creatinine 0.87, GFR is greater than 60, glucose 177, hemoglobin A1c is 6.1 calcium 9.7, liver enzymes are within normal limits, troponin CK-MB is negative and COVID-19 was negative. Patient History Medical History (Updated 10/23/19 @ 00:58 by EDDIE Napoles) GERD (gastroesophageal reflux disease) (Acute) HTN (hypertension) (Chronic) Hyperlipidemia (Acute) Surgical History No pertinent past surgical history (Acute) Family & Social History Safety & Behavioral: Feels Safe in Current Yes Environment Been Physically Hurt or No Threatened By a Person Tobacco & Substance use: Smoking Status Never smoker alcohol intake frequency holiday/special occasion Substance Use Type does not use Meds Home Medications and Allergies Home Medications Medication Instructions Recorded Confirmed Type atorvastatin 40 mg PO DAILY 07/05/18 07/05/18 History carvedilol 25 mg PO BID 07/05/18 07/05/18 History chlorthalidone 25 mg PO DAILY 07/05/18 07/05/18 History erythromycin 1 applic OPHTHALMIC (EYE) 07/05/18 07/05/18 History DIRECTED felodipine 5 mg PO DAILY 07/05/18 07/05/18 History folic acid 1 mg PO DAILY 07/05/18 07/05/18 History meclizine 25 mg PO BID PRN #10 tab 07/05/18 Rx methotrexate sodium 07/05/18 History metronidazole [Metrogel] 07/05/18 History omeprazole 20 mg PO DAILY 07/05/18 07/05/18 History Allergies Allergy/AdvReac Type Severity Reaction Status Date / Time No Known Drug Allergies Allergy Verified 10/22/19 19:22 Review of Systems Review of Systems ROS: Yes unobtainable due to mental status Exam Vital Signs (past 8 hours): - 10/22/19 19:22 10/22/19 19:25 10/22/19 19:30 Temperature 98.4 F Pulse Rate 102 H 127 H 124 H Respiratory Rate 15 30 H 25 H Blood Pressure 167/81 H Pulse Oximetry 95 96 96 10/22/19 20:00 10/22/19 20:11 10/22/19 20:34 Temperature Pulse Rate 126 H 127 H 123 H Respiratory Rate 26 H 25 H Blood Pressure 162/90 H Pulse Oximetry 96 95 97 10/22/19 21:00 10/22/19 21:30 10/22/19 22:00 Temperature Pulse Rate 126 H 127 H 128 H Respiratory Rate 22 23 Blood Pressure Pulse Oximetry 96 96 10/22/19 22:10 10/22/19 22:35 Temperature 98.5 F Pulse Rate 126 H 129 H Respiratory Rate 20 20 Blood Pressure 149/75 H 151/90 H Pulse Oximetry 96 96 Oxygen Delivery Method Room Air Oxygen Flow Rate 0 Narrative Exam Narrative: Gen: Alert, oriented to self, well-developed 78 y.o. male, appears to be uncomfortable HEENT: normocephalic, atraumatic, conjunctiva clear, sclera non-icteric, oral mucosa pink and moist Neck: supple, full ROM, no JVD, trachea is midline Resp: Lungs CTA, non-labored breathing CV: RRR, no murmur or rubs Abd: soft, non-tender, normoactive BTs Skin: no lesions or rashes, dry and intact Neuro: Alert and oriented X 2. Word finding difficulties and halting speech, otherwise clear. CN 2-8 intact Extremities: moves all 4 extremities, is ambulatory, negative Stewart?s sign Psyche: Pleasant, noted to be compulsive, so fall precautions in place Objective Labs Result Diagrams: 10/22/19 19:25 10/22/19 19:25 Labs: Laboratory Results - last 24 hr 10/22/19 10/22/19 10/22/19 19:25 19:25 19:25 WBC 10.1 RBC 4.47 L Hgb 15.8 Hct 44.1 MCV 98.6 MCH 35.4 H MCHC 35.9 RDW 14.1 Plt Count 197 Neut % (Auto) 79.1 H Lymph % (Auto) 14.2 L Crenshaw % (Auto) 5.8 Eos % (Auto) 0.5 L Baso % (Auto) 0.4 Neut # (Auto) 8000 H Lymph # (Auto) 1400 Crenshaw # (Auto) 600 Eos # (Auto) 100 Baso # (Auto) 0 PT 11.9 INR 1.0 APTT 29 D-Dimer Sodium 136 L Potassium 3.5 Chloride 98 Carbon Dioxide 28 BUN 14 Creatinine 0.87 Estimated GFR > 60.0 BUN/Creatinine Ratio 16.1 Glucose 177 H Hemoglobin A1c Calcium 9.7 Total Bilirubin 1.2 AST 37 ALT 33 Alkaline Phosphatase 98 Total Creatine Kinase 55 CK-MB (CK-2) TNP CK-MB (CK-2) Rel Index TNP Troponin I < 0.012 Total Protein 8.1 Albumin 4.4 Globulin 3.7 Albumin/Globulin Ratio 1.2 U Opiates 300ng/mL cut Ur Oxycodone Screen Urine Methadone Screen Ur Barbiturates Screen U Tricyclic Antidepress Ur Phencyclidine Scrn Ur Amphetamines Screen U Methamphetamines Scrn Ur MDMA Scrn (Ecstasy) U Benzodiazepines Scrn Urine Cocaine Screen U Marijuana (THC) Screen 10/22/19 10/22/19 10/22/19 19:25 19:25 20:15 WBC RBC Hgb Hct MCV MCH MCHC RDW Plt Count Neut % (Auto) Lymph % (Auto) Crenshaw % (Auto) Eos % (Auto) Baso % (Auto) Neut # (Auto) Lymph # (Auto) Crenshaw # (Auto) Eos # (Auto) Baso # (Auto) PT INR APTT D-Dimer 419 H Sodium Potassium Chloride Carbon Dioxide BUN Creatinine Estimated GFR BUN/Creatinine Ratio Glucose Hemoglobin A1c 6.1 H Calcium Total Bilirubin AST ALT Alkaline Phosphatase Total Creatine Kinase CK-MB (CK-2) CK-MB (CK-2) Rel Index Troponin I Total Protein Albumin Globulin Albumin/Globulin Ratio U Opiates 300ng/mL cut Negative Ur Oxycodone Screen Negative Urine Methadone Screen Negative Ur Barbiturates Screen Negative U Tricyclic Antidepress Negative Ur Phencyclidine Scrn Negative Ur Amphetamines Screen Negative U Methamphetamines Scrn Negative Ur MDMA Scrn (Ecstasy) Negative U Benzodiazepines Scrn Negative Urine Cocaine Screen Negative U Marijuana (THC) Screen Negative Assessment & Plan Assessment & Plan narrative: Brandon Duron is it 78-year-old male with what appears to be a history of hypertension, coronary artery disease, and hyperlipidemia who has sustained a right frontal lobe infarct and a possible meningioma in the same area. He will be further assessed with an MRI tomorrow and an echocardiogram. 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 MRI of head in the morning. -allow for permissive hypertension up to 220 systolic -complete echocardiogram -cardiac monitoring and q 8 hour NIH scores -he has passed nursing swallow eval so will be allowed to have a normal low- sodium diet -PT/OT/speech to cm in the morning -aspirin and anti-platelet agents are being held tonight due to inconsistency of reporting of the presence of bleed in the area of the subacute infarct. -Recommend discussion w/daytime radiologist and/or the stroke service to review again. Cognitive impairment unknown if temporary or gradual -Fall precautions in place due to patient being compulsive Essential hypertension, currently under control, present on admission -Recent RX for carvedilol, and felodipine, which are currently being held Hyperlipidemia, chronic, present on admission -Continue home dose of atorvastatin 40 po daily Consults: none at this time Patient is admitted under inpatient status with expected length of stay greater than 2 midnights due to severity of presenting symptoms, risk of adverse event, and complexity of treatment plan. FEN: IV saline lock, low sodium diet, BMP and magnesium in the am. VTE prophylaxis: Bilateral SCDs Dispo: Unknown at this time Code Status: Presumed to be full code until patient appears to clear or son can provide
[2019-10-23] VITALS (12 sets, daily range): BP systolic 131–148; BP diastolic 56–87; PULSE 68–125; RESP 16–22; TEMP 36.7–37.6; O2SAT 94–98; BMI 33.3
[2019-10-23 01:00] LABS: COVID19 -Nasal RAPID Negative (Negative)
[2019-10-23] MEDS: ATORVASTATIN 20 MG TABLET 40 MG PO ×2 (01:15→21:24)
[2019-10-23] MEDS: SODIUM CHLORIDE 0.9% 1,000 ML 100 ML IV (01:16)
[2019-10-23] MEDS: carvediloL 3.125 MG TABLET PO (04:12)
[2019-10-23 05:55] LABS: Add Manual Diff / Slide Review NO; Basophils Absolute Auto 100 /uL (0-100); Basophils Percent Auto 0.5 % (0-2); Eosinophils Absolute Auto 0 /uL (0-450); Eosinophils Percent Auto 0.3 % (2-4); Hematocrit 44.2 % (41-53); Hemoglobin 15.6 g/dL (13.5-17.5); Lymphocytes Absolute Auto 1800 /uL (1100-4500); Lymphocytes Percent Auto 17.6 % (25-40); Mean Corpuscular HGB Conc 35.2 % (30-36); Mean Corpuscular Hemoglobin 35.2 PG (26-34); Mean Corpuscular Volume 100.1 fL (80-100); Monocytes Absolute Auto 900 /uL (0-900); Monocytes Percent Auto 9.2 % (3-14); Neutrophils Absolute Auto 7200 /uL (1500-7000); Neutrophils Percent Auto 72.4 % (50-75); Platelet Count 189 X10^3/uL (150-400); Red Blood Cell Count 4.42 X10^6/uL (4.5-5.9); Red Cell Distribution Width 14.4 % (11.6-14.8)
[2019-10-23 06:03] LABS: Alanine Aminotransferase 29 IU/L (<50); Albumin 4.1 g/dL (3.5-5.0); Albumin Globulin Ratio 1.1 (1.0-2.8); Alkaline Phosphatase 96 U/L (38-126); Aspartate Aminotransferase 31 IU/L (17-59); BUN Creatinine Ratio 14.8 (6-22); Bilirubin Total 1.1 mg/dL (0.2-1.3); Blood Urea Nitrogen 13 mg/dL (9-20); Calcium 9.3 mg/dL (8.4-10.2); Carbon Dioxide 33 mmol/L (22-32); Chloride 97 mmol/L (98-107); Cholesterol 139 mg/dL (140-199); Estimated Glomerular Filt Rate > 60.0 mL/min (>60); Globulin 3.6 g/dL (1.7-4.1); Glucose 150 mg/dL (80-110); HDL Cholesterol 29 mg/dL (40-60); HEMOLYSIS < 15 (0-50); LDL Cholesterol Calculated 77 mg/dL (<100); Potassium 3.6 mmol/L (3.4-5.1); Sodium 136 mmol/L (137-145); Total Protein 7.7 g/dL (6.3-8.2); Triglycerides 166 mg/dL (35-150)
[2019-10-23 06:13] LABS: Troponin I < 0.012 ng/mL (0.01-0.034)
[2019-10-23 07:27] LABS: Thyroid Stimulating Hormone 2.13 uIU/mL (0.47-4.68)
--- NOTE | 2019-10-23 08:00 | DI.MRI.S_ITS ---
PROCEDURE: MR STROKE Pre- and post-contrast brain MRI, non-contrast brain MR angiogram, pre- and postcontrast neck MR angiogram INDICATIONS: right sided frontal CVA TECHNIQUE: Brain: Noncontrast axial T1 spin echo, axial T2 fast spin echo, sagittal and axial FLAIR, coronal T2 fast spin echo, axial gradient echo, axial diffusion and ADC through the brain. After the administration of contrast, axial 3D VIBE of the cranial vasculature and brain. Brain MRA: Non-contrast 3-D time of flight MR angiogram, with multiple jouubmt-cwudkmmdt-maqtrbxlat (MIP) reformats performed. Neck MRA: Axial and sagittal TruFISP through the neck. Coronal dynamic MR angiogram during administration of contrast in the arterial and venous phases, with 3-dimenstional wlpwxoe-sgdskxglp-pblvbvwlth (MIP) reformats constructed from subtraction images. COMPARISON: [facility], CT, CT HEAD/BRAIN WO CON, 10/22/2019, 19:32. [facility], CT, CT ANGIO HEAD AND NECK, 10/22/2019, 20:24. [facility], CT, CT HEAD/BRAIN WO CON, 07/05/2018, 13:21. FINDINGS: Image quality: Excellent. BRAIN: CSF spaces: Ventricles are normal in size and shape. Basal cisterns are patent. No extra-axial fluid collections. Brain: Moderate-sized area of restricted diffusion in the right frontal lobe consistent with acute infarction. There is a moderate amount of surrounding a flare/T2 signal hyperintensity. There is corresponding T1 isointensity and blooming on GRE sequence. Findings consistent with a parenchymal hemorrhagic conversion. No significant extra-axial collection. Right frontal extra-axial homogeneous mass with dural tail measuring 2.6 x 2 x 1.4 cm, (37/22 and 36/106), not significantly changed compared to CT from June 2018. This is consistent with a meningioma. There is periventricular FLAIR signal/T2 hyperintensity consistent with chronic microvascular ischemic disease. A small focus of encephalomalacia in the right basal ganglia consistent with prior infarction. There is minimal FLAIR signal hyperintensity at the splenule of the corpus callosum, (21/13). Brainstem appears normal. Normal intravascular flow voids are present. No abnormal intracranial enhancement. Skull and face: Calvarial marrow signal is normal. Orbits appear normal. Sinuses: Sinuses and mastoids are clear. BRAIN MR ANGIOGRAM: Anterior circulation: Intracranial internal carotid arteries are normal in size and enhancement. The flow within the paired anterior cerebral arteries is normal and symmetric. The flow within the middle cerebral arteries is normal and symmetric. The anterior communicating artery is seen. The posterior communicating arteries are seen but hypoplastic. No stenoses, occlusions, or aneurysms. Posterior circulation: Left vertebral artery is dominant. The right vertebral artery terminates as PICA. The visualized portions of the vertebral arteries demonstrate normal caliber, and join to form a normal appearing basilar artery. The flow within the posterior cerebral arteries is normal and symmetric. No stenoses, occlusions, or aneurysms. NECK MR ANGIOGRAM: Carotids: Left common carotid artery originates off the brachiocephalic artery, variant. The origins of the common carotid arteries appear patent. The calibers and courses of both common carotid arteries are normal. The bifurcation regions appear normal bilaterally. The internal carotid arteries demonstrate normal course and caliber. Posterior circulation: The origins of the vertebral arteries appear patent. More superior portions of both vertebral arteries demonstrate normal course and caliber, and join to form a normal appearing basilar artery. Miscellaneous: Subclavian arteries appear patent. Pre-contrast images through the neck show no soft tissue abnormalities. Extensive degenerative change in the neck. IMPRESSION: BRAIN MRI: 1. Moderate-sized infarct in the right frontal lobe. Findings consistent with parenchymal hemorrhagic conversion and surrounding edema. 2. Chronic microvascular ischemic disease. Prior lacunar infarct in the right basal ganglia. 3. Small right frontal lateral meningioma. 4. Subtle FLAIR signal hyperintensity in the splenium of the corpus callosum of uncertain clinical significance. BRAIN MR ANGIOGRAM: No large vessel occlusion seen. NECK MR ANGIOGRAM: No large vessel occlusion. Dominant left vertebral artery with the right vertebral artery terminating as PICA. Dictated by: Douglas Laird M.D. on 10/23/2019 at 10:59 Approved by: Douglas Laird M.D. on 10/23/2019 at 11:23
--- NOTE | 2019-10-23 08:15 | ST.IPIE ---
Visit Care Team Role Provider Type Robbie Tejada MD Primary Care Provider Non-Staff Specialty: Internal Medicine Address: [address] [place], [address] Email: Willian Aguilera DO Emergency Provider Physician Referring Provider Specialty: Emergency Medicine Address: [address] [place] [address], [address] Email: [email or web address] Napoles Admit Provider Physician Attending Provider Specialty: Internal Medicine Address: [address] [place] [address], [id number] Email: [email or web address] Diagnoses Cerebral infarction, unspecified (10/22/19) Past Medical History (Last Updated 10/23/19 @ 00:58 by EDDIE Napoles) GERD (gastroesophageal reflux disease) (Acute Medical) HTN (hypertension) (Chronic Medical) Hyperlipidemia (Acute Medical) ST IP Initial Evaluation 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 Gibson Reason for Referral Subacute infarction in right frontal lobe Past Medical History Patient History Patient was admitted last night for difficulty communicating and found to have subacute infarct in right frontal lobe on head CT. Patient lives at home alone in [place]. He has two adult children who live out of state . 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 Hearing Hearing Level Normal Vision Vision Status Impaired Comments Wears glasses [place] Language Language(s) Spoken in the Home Greek Occupational Status Occupation Status Retired Subjective Subjective Patient was sitting up in bed eating breakfast and watching TV. He agreed to participate in a speech and language evaluation. - Informal Assessment Receptive Language Normal Yes Expressive Language Normal No Articulation Normal Yes Cognition Normal difficulty to fully assess d/t aphasia Assessment Findings Patient was assessed using the Quick Aphasia Battery. Scores are as follows: Word comprehension - 10/10 Sentence Comprehension - 7.92/ 10 Word Finding - 6.83/10 Grammatical Construction - 6. 75/10 Speech Motor Programming - 7.5 /10 Repetition - 8.3/10 Reading - 8.3/10 QAB Overall - 7.32/10 Scores indicate a moderate impairment of expressive language with relatively normal comprehension most consistent with Broca's aphasia. Patient is able to name pictures, answer yes/no questions and follow simple directions without difficulty; however, he has significant difficulty communicating complex ideas. Articulation was judged to be within normal limits. No paraphasias identified. Cognition was assessed using the SLUMS and patient scored 10/30 indicating significant impairments in short term memory and attention. He also exhibited some repetitive behaviors such as repeating words, repeating numbers when labeling a clock and perseverating on taking bites of food when the container was empty. Recommendations Patient exhibits moderate cognitive linguistic impairments which have negative implications on safety and his ability to perform general tasks and demands independently. Patient will need 24/7 supervision if he discharges home. He would benefit from outpatient or home health speech therapy to target cognitive linguistic skills. - Receptive Language - Expressive Language -
--- NOTE | 2019-10-23 09:35 | PT.IIE ---
Current Diagnoses Cerebral infarction, unspecified (10/22/19) Surgical History (Last Reviewed 10/22/19 @ 21:21 by Willian Aguilera DO) No pertinent past surgical history (Acute) Medical History (Last Updated 10/23/19 @ 00:58 by EDDIE Napoles) GERD (gastroesophageal reflux disease) (Acute) HTN (hypertension) (Chronic) Hyperlipidemia (Acute) Physical Therapy Inpatient Evaluation/Re-Eval M1 PT/OT-IP Prior Functional Status Start: 10/23/19 14:37 Freq: NEEDED Status: Active Protocol: Document 10/23/19 09:35 AB (Rec: 10/23/19 14:49 AB [id number]) Medical Review Prior Functional Status Medical History Reviewed Yes Communication able to make needs known Mobility and Gait pt stated that he is independent with all mobilities and ambulation without AD; pt was still driving prior to admission Social History Household Members none Living Arrangements House Number of Floors (Floors) One Floor Number of Stairs To Enter/Railing? no steps to enter Home Environment High Toilet,Walk in Shower Home Equipment Hand Held Shower,Grab Bars Near Toilet,Grab Bars In Shower M2 PT-IP Current Condition Start: 10/23/19 14:37 Freq: NEEDED Status: Active Protocol: Document 10/23/19 09:35 AB (Rec: 10/23/19 14:49 AB [id number]) Physical Therapy Current Condition Current Condition Evaluation Date 10/23/19 Treatment Diagnosis CVA; difficulty in walking Onset Date 10/22/19 M3 PT-IP Subjective Start: 10/23/19 14:37 Freq: NEEDED Status: Active Protocol: Document 10/23/19 09:35 AB (Rec: 10/23/19 14:49 AB [id number]) Subjective Physical Therapy Visit Type Type Initial Evaluation Visit Start Time 09:35 Visit Stop Time 09:59 Total Visit Minutes 24 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 of 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 Visits 0 Physical Therapy Visit Comments Patient Comments pt is agreeable to do PT Therapy Pain Assessment Pain Present Pain Present Denied Pain M4 PT-IP Mobility and Gait Start: 10/23/19 14:37 Freq: NEEDED Status: Active Protocol: Document 10/23/19 09:35 AB (Rec: 10/23/19 14:49 AB [email or web address]) PT-Bed Mobility Assessment Supine to Sit Supine to Sit Standby Assistance Sit to Supine Sit to Supine Standby Assistance Scooting Scooting to Edge of Bed Standby Assistance PT-Transfer Assessment Sit to and From Stand Sit to and from Stand Standby Assistance Equipment Transfer Assistive Device None,Gait Belt Transfers Transfer Destination Chair Transfer Technique Stand Step Pivot Transfer Ability Level of Assist Standby Assistance,1 Person Assistance,Use of Upper Extremities Gait Assessment Gait Gait Assistance Required: Contact Guard Assist,Minimum Assistance,1 Person Assist Distance (Feet) 20 Able to Maintain Weight Bearing Status Yes During Gait Assistive Devices Assistive Device Gait Belt,Front Wheeled Walker Gait Deviations General Gait Pattern Antalgic,Decreased Stride Length,Decreased Feet Clearance Factors Limiting Gait Function Factors Limiting Gait Function Decreased Activity Tolerance, Decreased Strength,Difficulty Following Directions,Poor Balance,Poor Safety Awareness Comments Gait Comments pt completed supine to sit SBA and was able to sit on EOB SBA. transferred to chair step pivot without AD SBA. ambulated in room without AD CGA to min A and cues. pt with (+) LLE dragging after a few feet of ambulation. pt with unsteady antalgic gait. assessed ambulation using FWW and pt elmer freeman and was able to ambulate ~ 30 ft SBA. pt agreed to use FWW at this time. pt agreed to sit up on chair. positioned on chair. call light and table placed within reach. pt presents with slow reaction time/ responses to questions and instructions. PT-Balance Assessment Sitting Balance and Reactions Static Sitting Balance Ability Good Dynamic Sitting Balance Ability Good Standing Balance and Reactions Static Standing Balance Ability Fair Dynamic Standing Balance Ability Fair Device Used without AD M5 PT-IP Objective Assessments Start: 10/23/19 14:37 Freq: NEEDED Status: Active Protocol: Document 10/23/19 09:35 AB (Rec: 10/23/19 14:49 AB [id number]) Orientation Orientation/Cognition Level of Alertness Alert Orientation Name,Age,Birthday,Month,Year, Place,Situation Safety Awareness Decreased Safety Awareness Gross Range of Motion Lower Extremity ROM Assessment Within Functional Limits Strength Lower Extremity Strength Assessment Left Impaired Hip 4-/5 Knee 4-/5 Ankle 3/5 M6 PT-IP Treatment Start: 10/23/19 14:37 Freq: NEEDED Status: Active Protocol: Document 10/23/19 09:35 AB (Rec: 10/23/19 14:49 AB [email or web address]) Physical Therapy Treatment Education Education Provided Safety M7 PT-IP Assessment and Plan Start: 10/23/19 14:37 Freq: NEEDED Status: Active Protocol: Document 10/23/19 09:35 AB (Rec: 10/23/19 14:49 AB [id number]) PT Summary Assessment and Plan Potential Rehabilitation Potential Good Status of Condition at Evaluation Stable Summary Impairments Pain,ROM,Strength,Balance, Coordination,Sensation,Tone, Cognition,Bed Mobility, Transfers,Gait,Activity Tolerance Assessment Summary pt requiring CGa to min A with ambulation without AD but with LLE weakness and dragging LLE after a few feet of ambultion. recommeding use of FWW at this time. will continue to assess pt's mobility. pt lives alone and d/c plan depending on progress of us somebody will be able to assist him. pt will also benefit from outpt PT. Goals Bed Mobility Goal Independent Transfer Goal Independent,Cane Gait Goal Independent,Cane Gait Distance 200 Other Goals improve ambulation without AD 200 ft I Days to Meet Goals 5 Frequency of Treatment Frequency Of Treatment Twice a Day Treatment Plan Physical Therapy Treatment Plan Bed Mobility Training,Transfer Training,Gait Training, Therapeutic Exercise,Balance Retraining,Discharge Planning, Hot or Cold Pack,Neuromuscular Re-ed,Coordination Retraining Recommendations To Nursing Amount of Assist Needed 1 Person Assist Discharge Recommendations PT Discharge Recommendations Home with Assistance, Outpatient PT Equipment Needed for Home Before FWW/SPC if not safe without AD Discharge Transportation Needs at Discharge Private Vehicle
--- NOTE | 2019-10-23 10:59 | PC.NURSE ---
Assess-Patient is A&Ox2, he is having a hard time remembering some things. Asked if he had children and he states no, asked his significant other and she states that he has a son and daughter. Per Speech Therapist pt does have some moderate expressive dysphagia. He is slightly unsteady on his feet and he is impulsive. He has a chair alarm in place and is visiting with his friend in room. Patient did well with CVA stroke packet and answering questions about different scenarios in pictures and was able to read the sentences well. He has no arm or leg drift and is able to raise all extremities well. His smile is symmetrical, just back from his MRI.
--- NOTE | 2019-10-23 14:46 | OT.IP.EVAL ---
Current Diagnoses Cerebral infarction, unspecified (10/22/19) Past Medical History (Last Updated 10/23/19 @ 00:58 by EDDIE Napoles) GERD (gastroesophageal reflux disease) (Acute) HTN (hypertension) (Chronic) Hyperlipidemia (Acute) Surgical History (Last Reviewed 10/22/19 @ 21:21 by Willian Aguilera DO) No pertinent past surgical history (Acute) Occupational Therapy Inpatient Evaluation/Re-Eval M1 PT/OT-IP Prior Functional Status Start: 10/23/19 18:20 Freq: NEEDED Status: Active Protocol: Document 10/23/19 13:25 [facility] (Rec: 10/23/19 19:09 [facility] [id number]) Medical Review Prior Functional Status Medical History Reviewed Yes Communication able to make needs known Mobility and Gait pt stated that he is independent with all mobilities and ambulation without AD; pt was still driving prior to admission Activities of Daily Living and IADL's Completely independent with all ADL , IADL, and driving. Social History Household Members none Living Arrangements House Number of Floors (Floors) One Floor Number of Stairs To Enter/Railing? no steps to enter Home Environment High Toilet,Walk in Shower Home Equipment Hand Held Shower,Grab Bars Near Toilet,Grab Bars In Shower Additional Social History Comment Pt has a back deck with steps down to the yard. Pt's significant other, Alyssa states prior did not use the steps. Alyssa states notices that the pt has been weaker the past two weeks. M2 OT-IP Current Condition Start: 10/23/19 18:20 Freq: Status: Active Protocol: Document 10/23/19 13:25 [facility] (Rec: 10/23/19 19:09 [facility] [id number]) Occupational Therapy Current Condition Current Condition Evaluation Date 10/23/19 Treatment Diagnosis Subacute infarction of right frontal lobe Diagnosis Onset Date 10/22/19 M3 OT- IP Subjective and Pain Start: 10/23/19 18:20 Freq: Status: Active Protocol: Document 10/23/19 13:25 [facility] (Rec: 10/23/19 19:09 [facility] [id number]) OT- Subjective Occupational Therapy Visit Type Type Initial Evaluation Visit Start Time 13:25 Visit Stop Time 14:46 Total Visit Minutes 86 Occupational Therapy Visit Comments Patient Comments Pt up in the chair and willing to do OT eval. Pt's significant other in the room. Patient/Caregiver Goals To go home. OT Pain Assessment Pain When Pain Assessed At Rest Pain Present Pain Present Denied Pain M4 OT- IP ADL's Start: 10/23/19 18:20 Freq: Status: Active Protocol: Document 10/23/19 13:25 [facility] (Rec: 10/23/19 19:09 [facility] [id number]) OT [id number] Comments OT Self-Feeding Comments Not at meal time. OT ADL-Grooming Comments OT Grooming Comments Able to stand at sink with CGA to wash his hands. OT ADL-Dressing General Eval Lower Body Dressing Ability Moderate Assistance Areas Needing Assistance Underpants/Brief,Socks Comments OT Dressing Comments Pt having difficulty to colby his socks and get brief over his feet. OT ADL-Toileting General Evaluation Toileting Ability Minimal Assistance Areas Needing Assistance Manage Clothing Comments OT Toileting Comments Pt able to stand to urinate. Pt having brief was wet and having to have pt sit back down on the toilet and needing assist to put on another brief due to his decreased balance. OT ADL-Bathing Comments OT Bathing Comments Not at this time. M5 OT- IP IADL's Start: 10/23/19 18:20 Freq: Status: Active Protocol: Document 10/23/19 13:25 [facility] (Rec: 10/23/19 19:09 [facility] [id number]) OT-Instrumental Activities of Daily Living Deficits IADL Deficits Identified Deficits Home Safety Awareness Awareness of Need for Assistance at Home Decreased Awareness Ability to Problem Solve Emergency Unable to Problem Solve Situations Medication Management Medication Management Comments At this time due to his cognitive deficits and poor awareness to his disabilities, pt will require assist at this time. Money Management Money Management Comments At this time due to his cognitive deficits and poor awareness to his disabilities, pt will require assist at this time. Meal Preparation Meal Preparation Comments At this time due to his cognitive deficits and poor awareness to his disabilities, pt will require assist at this time. Roving Machine Operator Roving Machine Operator Comments At this time due to his cognitive deficits and poor awareness to his disabilities, pt will require assist at this time. M6 OT- IP Functional Cognition Start: 10/23/19 18:20 Freq: Status: Active Protocol: Document 10/23/19 13:25 [facility] (Rec: 10/23/19 19:09 [facility] [id number]) Cognitive Factors Limiting Selfcare Function Cognitive Ability Level of Alertness Alert Patient Orientation Name Attention Span Ability Capable of Focused Attention, Capable of Sustained Attention Ability to Follow Commands Able to Follow One Step Commands with Increased Time, Able to Follow One Step Commands with Repetition Memory Description Short Term Impaired,Working Impaired Safety Awareness Underestimates Need for Assistance Problem Solving Ability Unable to Identify Errors, Needs Assist to Identify Solutions Executive Function Ability Unable to Filter Distractions, Unable to Organize Plans, Unable to Remember Details Cognitive Tests SLUMS Per HELICOPTER DISPATCHER, pt scored 10/30. Cognitive Comments Cognitive Assessment Comments Pt not able to complete [place] Making A and jordi a line from 1-2-4 and not able to connect the numbers in sequential order. OT- Vision and Hearing OT- Hearing Assessment OT- Hearing Assessment Use of Hearing Aids OT- Vision Assessment Visual Acuity Glasses All The Time Occular Pursuits WFL Visual Dimas WFL Vision Assessment Comments At this time pt vision appears intact. To continue to assess pt. Pt states noticed lately that he has been bumping into object on the right. M7 OT- IP Mobility and Balance Start: 10/23/19 18:20 Freq: Status: Active Protocol: Document 10/23/19 13:25 [facility] (Rec: 10/23/19 19:09 [facility] [id number]) OT-Transfer Assessment Sit to and From Stand Sit to and from Stand Minimal Assistance Transfers Transfer Ability Minimal Assistance,Moderate Assistance Technique Transfer Destination Chair,Toilet Transfer Technique Stand Step Pivot Devices Transfer Assistive Devices Gait Belt,Front Wheeled Walker Comments Mobility Comments Pt MODA to stand to FWW and at times leans on his heels. Pt needing assist to guide FWW, assist for balance and safety. Pt a high fall risk. OT- Balance Assessment Sitting Balance and Reactions Static Sitting Balance Ability Good Dynamic Sitting Balance Ability Fair Standing Balance and Reactions Static Standing Balance Ability Poor M8 OT- IP Objective Assessments Start: 10/23/19 18:20 Freq: Status: Active Protocol: Document 10/23/19 13:25 [facility] (Rec: 10/23/19 19:09 [facility] [id number]) OT Gross Range of Motion Upper Extremity Range of Motion Assessment Within Functional Limits OT Strength Comments Strength Comments BUE 4-/5 to 4/5 from proximal to distal. OT- Coordination Assessment Upper Extremity Finger to Nose Test Within Functional Limits Comments Coordination Comments Pt right hand 36.5 seconds and and left hand 45 seconds which both rank him below the 10th percentile for his age group. OT-Muscle Tone Assessment Muscle Tone WNL Yes OT Sensation Assessment Comments Summary Comments Pt decreased proprioception for left elbow to wrist and right wrist. M9 OT- IP Assessment and Plan Start: 10/23/19 18:20 Freq: Status: Active Protocol: Document 10/23/19 13:25 [facility] (Rec: 10/23/19 19:09 [facility] [id number]) OT Summary Assessment and Plan Potential Rehabilitation Potential Good Analytic Complexity at Evaluation Low Summary OT Impairments Balance,Functional Cognition, Functional Mobility,Self- Feeding,Grooming,Dressing, Toileting,Bathing,Toilet Transfers,Shower Transfers, Activity Tolerance Progress Towards Goals Slow Progress due to Medical Issues,Slow Progress due to Activity Tolerance,Slow Progress due to Cognition Assessment Summary Pt MOD complexity with s/p CVA and now has cognitive deficits for executive thinking, speed of processing, visual attention, and task switching. Pt has decreased safety awareness, balance and at this time poor insight to his disabilities at this time. Pt would benefit from acute rehab. Pt is far from baseline of being completely independent. Goals Self-Feeding Goal Independent Grooming Goal Independent Dressing Goal Independent Toileting Goal Independent Bathing Goal Independent Toilet Transfer Goal Independent Shower Transfer Goal Independent Days to Meet Goals 20 Frequency of Treatment Frequency Of Treatment Once a Day Treatment Plan OT Treatment Plan ADL Training,Functional Cognition Training,Functional Mobility,Patient/Family Education,Discharge Planning Discharge Recommendations OT Discharge Recommendations SNF Rehab,Acute Rehab Home Equipment Needs Shower chair, FWW Transportation Needs at Discharge Private Vehicle
--- NOTE | 2019-10-23 16:59 | PC.NURSE ---
0725 - The patient's bed alarm was sounding. The patient was found to be standing near the bathroom door. He had both of his SCD cuffs on and the tubing was stretched to the point where he was leaning forward attempting to remove the cuffs. I assisted the patient to remove the SCD's and into the bathroom to void. The patient has difficulties following cueing, which may be related to his ability to hear. One hearing aid in place, CAR BLOCKER assisted patient to place the other. Assist back to bed. Reinforced safety and call light use. Bed alarm placed on sensitive setting.
--- NOTE | 2019-10-23 17:05 | PT-IP ANOTE ---
checked on pt but pt is asleep. attempted to wake up but pt continues to sleep. checked on pt again after ~ 1-2 hours. pt is still asleep. able to wake up but did not open his eyes. informed regarding PT tx and just keep saying yes but when blankets where taken off, pt stated that he does not want to get up. will f/u hannah
--- NOTE | 2019-10-23 17:09 | P.PN_ITS ---
Subjective Subjective Date Patient Seen: 10/23/19 Interval history: The patient is an 78-year-old male who was admitted to the hospital for dysarthria/aphasia. Head CT confirmed a frontal lobe CVA. Patient continues to have dysarthria. He was evaluated today by PT OT and speech. He is quite weak and unable to ambulate independently. In addition he has some cognitive decline which makes an unsafe for him to be home alone Exam Vital Signs (past 8 hours): - 10/23/19 12:00 10/23/19 15:20 Temperature 99.3 F 98.4 F Pulse Rate 68 71 Respiratory Rate 16 18 Blood Pressure 132/61 131/56 L Pulse Oximetry 94 97 Oxygen Delivery Method Room Air Oxygen Flow Rate 0 Narrative Exam Narrative: Pleasant gentleman resting comfortably in no acute distress Lungs: Clear to auscultation Cardiac exam: Regular rate and rhythm normal S1-S2 The abdomen: Soft nontender nondistended Extremities: No edema Neuro exam: NIH score of 2 Cranial nerves 2-12 are intact, Strength is symmetric and equal, Sensation is grossly intact Reflexes are brisk and equal, Gait is not assessed, however PT notes patient is on statin Patient's speech is clear and fluent, he does at times have evidence of dysarthria. Objective Labs Result Diagrams: 10/23/19 05:28 10/23/19 05:28 Labs: Laboratory Results - last 24 hr 10/22/19 10/22/19 10/22/19 19:25 19:25 19:25 WBC 10.1 RBC 4.47 L Hgb 15.8 Hct 44.1 MCV 98.6 MCH 35.4 H MCHC 35.9 RDW 14.1 Plt Count 197 Neut % (Auto) 79.1 H Lymph % (Auto) 14.2 L [place] % (Auto) 5.8 Eos % (Auto) 0.5 L Baso % (Auto) 0.4 Neut # (Auto) 8000 H Lymph # (Auto) 1400 [place] # (Auto) 600 Eos # (Auto) 100 Baso # (Auto) 0 PT 11.9 INR 1.0 APTT 29 D-Dimer Sodium 136 L Potassium 3.5 Chloride 98 Carbon Dioxide 28 BUN 14 Creatinine 0.87 Estimated GFR > 60.0 BUN/Creatinine Ratio 16.1 Glucose 177 H Hemoglobin A1c Calcium 9.7 Magnesium Total Bilirubin 1.2 AST 37 ALT 33 Alkaline Phosphatase 98 Total Creatine Kinase 55 CK-MB (CK-2) TNP CK-MB (CK-2) Rel Index TNP Troponin I < 0.012 Total Protein 8.1 Albumin 4.4 Globulin 3.7 Albumin/Globulin Ratio 1.2 Triglycerides Cholesterol LDL Cholesterol, Calc HDL Cholesterol TSH U Opiates 300ng/mL cut Ur Oxycodone Screen Urine Methadone Screen Ur Barbiturates Screen U Tricyclic Antidepress Ur Phencyclidine Scrn Ur Amphetamines Screen U Methamphetamines Scrn Ur MDMA Scrn (Ecstasy) U Benzodiazepines Scrn Urine Cocaine Screen U Marijuana (THC) Screen COVID-19 PCR 10/22/19 10/22/19 10/22/19 19:25 19:25 20:15 WBC RBC Hgb Hct MCV MCH MCHC RDW Plt Count Neut % (Auto) Lymph % (Auto) [place] % (Auto) Eos % (Auto) Baso % (Auto) Neut # (Auto) Lymph # (Auto) [place] # (Auto) Eos # (Auto) Baso # (Auto) PT INR APTT D-Dimer 419 H Sodium Potassium Chloride Carbon Dioxide BUN Creatinine Estimated GFR BUN/Creatinine Ratio Glucose Hemoglobin A1c 6.1 H Calcium Magnesium Total Bilirubin AST ALT Alkaline Phosphatase Total Creatine Kinase CK-MB (CK-2) CK-MB (CK-2) Rel Index Troponin I Total Protein Albumin Globulin Albumin/Globulin Ratio Triglycerides Cholesterol LDL Cholesterol, Calc HDL Cholesterol TSH U Opiates 300ng/mL cut Negative Ur Oxycodone Screen Negative Urine Methadone Screen Negative Ur Barbiturates Screen Negative U Tricyclic Antidepress Negative Ur Phencyclidine Scrn Negative Ur Amphetamines Screen Negative U Methamphetamines Scrn Negative Ur MDMA Scrn (Ecstasy) Negative U Benzodiazepines Scrn Negative Urine Cocaine Screen Negative U Marijuana (THC) Screen Negative COVID-19 PCR 10/23/19 10/23/19 10/23/19 00:01 05:28 05:28 WBC 10.0 RBC 4.42 L Hgb 15.6 Hct 44.2 MCV 100.1 H MCH 35.2 H MCHC 35.2 RDW 14.4 Plt Count 189 Neut % (Auto) 72.4 Lymph % (Auto) 17.6 L [place] % (Auto) 9.2 Eos % (Auto) 0.3 L Baso % (Auto) 0.5 Neut # (Auto) 7200 H Lymph # (Auto) 1800 [place] # (Auto) 900 Eos # (Auto) 0 Baso # (Auto) 100 PT INR APTT D-Dimer Sodium 136 L Potassium 3.6 Chloride 97 L Carbon Dioxide 33 H BUN 13 Creatinine 0.88 Estimated GFR > 60.0 BUN/Creatinine Ratio 14.8 Glucose 150 H Hemoglobin A1c Calcium 9.3 Magnesium 2.0 Total Bilirubin 1.1 AST 31 ALT 29 Alkaline Phosphatase 96 Total Creatine Kinase CK-MB (CK-2) CK-MB (CK-2) Rel Index Troponin I < 0.012 Total Protein 7.7 Albumin 4.1 Globulin 3.6 Albumin/Globulin Ratio 1.1 Triglycerides 166 H Cholesterol 139 L LDL Cholesterol, Calc 77 HDL Cholesterol 29 L TSH U Opiates 300ng/mL cut Ur Oxycodone Screen Urine Methadone Screen Ur Barbiturates Screen U Tricyclic Antidepress Ur Phencyclidine Scrn Ur Amphetamines Screen U Methamphetamines Scrn Ur MDMA Scrn (Ecstasy) U Benzodiazepines Scrn Urine Cocaine Screen U Marijuana (THC) Screen COVID-19 PCR Negative 10/23/19 05:28 WBC RBC Hgb Hct MCV MCH MCHC RDW Plt Count Neut % (Auto) Lymph % (Auto) [place] % (Auto) Eos % (Auto) Baso % (Auto) Neut # (Auto) Lymph # (Auto) [place] # (Auto) Eos # (Auto) Baso # (Auto) PT INR APTT D-Dimer Sodium Potassium Chloride Carbon Dioxide BUN Creatinine Estimated GFR BUN/Creatinine Ratio Glucose Hemoglobin A1c Calcium Magnesium Total Bilirubin AST ALT Alkaline Phosphatase Total Creatine Kinase CK-MB (CK-2) CK-MB (CK-2) Rel Index Troponin I Total Protein Albumin Globulin Albumin/Globulin Ratio Triglycerides Cholesterol LDL Cholesterol, Calc HDL Cholesterol TSH 2.13 U Opiates 300ng/mL cut Ur Oxycodone Screen Urine Methadone Screen Ur Barbiturates Screen U Tricyclic Antidepress Ur Phencyclidine Scrn Ur Amphetamines Screen U Methamphetamines Scrn Ur MDMA Scrn (Ecstasy) U Benzodiazepines Scrn Urine Cocaine Screen U Marijuana (THC) Screen COVID-19 PCR Assessment & Plan Assessment & Plan narrative: Brandon Duron is it 78-year-old male with what appears to be a history of hypertension, coronary artery disease, and hyperlipid emia who has sustained a right frontal lobe infarct. Subacute infarction of the right frontal lobe, present on admission -MRI of the brain Moderate-sized infarct in the right frontal lobe. Findings consistent with parenchymal hemorrhagic conversion and surrounding edema. 2. Chronic microvascular ischemic disease. Prior lacunar infarct in the right basal ganglia. 3. Small right frontal lateral meningioma. 4. Subtle FLAIR signal hyperintensity in the splenium of the corpus callosum of uncertain clinical significance.BRAIN MR ANGIOGRAM: No large vessel occlusion seen. NECK MR ANGIOGRAM: No large vessel occlusion. Dominant left vertebral artery with the right vertebral artery terminating as PICA. -patient with hemorrhagic conversion, therefore will hold aspirin and Plavix at this time. No Lovenox for DVT prophylaxis -consider low-dose aspirin at discharge -continue PT and OT -continue speech -acute rehab referral. The patient does not qualify for acute rehab would consider subacute rehab as he is unsafe for discharge at this time. Echo cardiac -LV function normal, ejection fraction 60 65%, right atrial enlargement noted, [id number] mitral regurgitation Cognitive impairment unknown if temporary or gradual -Fall precautions in place due to patient being compulsive -suspect acute related to frontal lobe infarction Essential hypertension, currently under control, present on admission -will resume Coreg and felodipine Hyperlipidemia, chronic, present on admission -Continue home dose of atorvastatin 40 po daily Anticipate transfer to senior living once a bed is available. Quality VTE Deep Vein Thrombosis/Pulmonary Embolism Present on Admission: No
[2019-10-23] MEDS: carvediloL 25 MG TABLET PO (21:24)
[2019-10-24] VITALS (10 sets, daily range): BP systolic 134–147; BP diastolic 80–100; PULSE 66–120; RESP 16–20; TEMP 36.2–37.2; O2SAT 94–97
--- NOTE | 2019-10-24 02:32 | PC.NURSE ---
Patient is alert and oriented except to day of month and day of week. Occasionally is having difficulty finding the correct word and can be delayed in responses. NIH = 1. Breath sounds CTA with RA sat of 94%. BP elevated at 140/71 which is consistent with previous readings. Telemetry reading was SR w/BBB. Denies nausea. BT hypoactive but states he is passing flatus. Is using urinal with assistance; denies dysuria, frequency or urgency. Able to turn himself. Does need assistance to get to standing position but then uses walker and SBA to walk. Wearing bilateral calf SCD's. Denies pain. Fall risk assessment is high as patient is impulsive and does not remember to call for assistance; bed alarm is activated.
[2019-10-24] MEDS: SODIUM CHLORIDE 0.9% 1,000 ML 100 ML IV ×2 (04:02→14:54)
--- NOTE | 2019-10-24 08:00 | OT.IP.TRT ---
Current Diagnoses Cerebral infarction, unspecified (10/22/19) Occupational Therapy Treatment Note M2 OT-IP Current Condition Start: 10/23/19 18:20 Freq: Status: Active Protocol: Document 10/23/19 13:25 [facility] (Rec: 10/23/19 19:09 [facility] [id number]) Occupational Therapy Current Condition Current Condition Evaluation Date 10/23/19 Treatment Diagnosis Subacute infarction of right frontal lobe Diagnosis Onset Date 10/22/19 M3 OT- IP Subjective and Pain Start: 10/23/19 18:20 Freq: Status: Active Protocol: Document 10/24/19 13:03 [facility] (Rec: 10/24/19 13:14 [facility] [id number]) OT- Subjective Occupational Therapy Visit Type Type Treatment Note Visit Start Time 08:00 Visit Stop Time 08:31 Total Visit Minutes 31 Occupational Therapy Visit Comments Patient Comments Pt having high BP 141/100 and nursing states to just see pt while in bed for now. Patient/Caregiver Goals To go home, but now realizes may need to go to rehab prior to going home. OT Pain Assessment Pain When Pain Assessed At Rest Pain Present Pain Present Denied Pain M6 OT- IP Functional Cognition Start: 10/23/19 18:20 Freq: Status: Active Protocol: Document 10/24/19 13:03 [facility] (Rec: 10/24/19 13:14 [facility] [id number]) Cognitive Factors Limiting Selfcare Function Cognitive Ability Level of Alertness Alert Patient Orientation Name,Month,Date,Year,Day of Week,Place,Situation Attention Span Ability Capable of Focused Attention, Capable of Sustained Attention Ability to Follow Commands Able to Follow One Step Commands Memory Description Short Term Impaired Safety Awareness Underestimates Need for Assistance Problem Solving Ability Unable to Identify Errors, Needs Assist to Identify Solutions Executive Function Ability Unable to Remember Details Cognitive Comments Cognitive Assessment Comments Pt able to complete [place] Making Part B today with score of 437 seconds which implies severe impairments for task switching, visual attention, mental flexibility, and speed of processing. Pt now seems more aware of his deficits and appears to agree now that at this time not to drive. Pt able to at answer all home safety situations accurately versus only 50% yesterday. Pt still needing cues for safety awareness. M7 OT- IP Mobility and Balance Start: 10/23/19 18:20 Freq: Status: Active Protocol: Document 10/24/19 13:03 [facility] (Rec: 10/24/19 13:14 [facility] [id number]) OT- Bed Mobility Assessment Rolling Type of Rolling Roll to Right Level of Assistance Standby Assistance Supine to Sit Supine to Sit Assist Standby Assistance Sit to Supine Sit to Supine Assist Standby Assistance OT-Transfer Assessment Sit to and From Stand Sit to and from Stand Contact Guard Assistance Comments Mobility Comments Pt trying to get out of bed as needing to use the bathroom, CGA with fww to stand to use the urinal and then side step up to the head of the bed. Pt versus yesterday steadier on his feet. OT- Balance Assessment Sitting Balance and Reactions Static Sitting Balance Ability Normal Dynamic Sitting Balance Ability Good Standing Balance and Reactions Static Standing Balance Ability Fair M9 OT- IP Assessment and Plan Start: 10/23/19 18:20 Freq: Status: Active Protocol: Document 10/24/19 13:03 [facility] (Rec: 10/24/19 13:14 [facility] [id number]) OT Summary Assessment and Plan Potential Rehabilitation Potential Good Analytic Complexity at Evaluation Low Summary OT Impairments Balance,Functional Cognition, Functional Mobility,Self- Feeding,Grooming,Dressing, Toileting,Bathing,Toilet Transfers,Shower Transfers, Activity Tolerance Progress Towards Goals Progressing Toward Goals,Slow Progress due to Activity Tolerance,Slow Progress due to Cognition Assessment Summary Pt making progress with his functional cognition today and able to accurately draw a clock today versus not at all yesterday. Pt able to complete [place] making Part B versus yesterday not able to sequence numbers past 2. Today pt however would go from 12 to 14 , and 22-24. Pt still far from baseline and would benefit from inpt acute rehab prior to going home. Goals Self-Feeding Goal Independent Grooming Goal Independent Dressing Goal Independent Toileting Goal Independent Bathing Goal Independent Toilet Transfer Goal Independent Shower Transfer Goal Independent Days to Meet Goals 19 Frequency of Treatment Frequency Of Treatment Once a Day Treatment Plan OT Treatment Plan ADL Training,Functional Cognition Training,Functional Mobility,Patient/Family Education,Discharge Planning Other Treatment Recommendations and Next Shower Treatment Focus Discharge Recommendations OT Discharge Recommendations Acute Rehab Home Equipment Needs Shower chair, FWW Transportation Needs at Discharge Private Vehicle
[2019-10-24] MEDS: carvediloL 25 MG TABLET PO ×2 (08:09→21:34)
[2019-10-24] MEDS: FELODIPINE ER 5 MG TAB PO (08:09)
--- NOTE | 2019-10-24 12:05 | PT.IPTN ---
Current Diagnoses Cerebral infarction, unspecified (10/22/19) Physical Therapy Treatment Note M2 PT-IP Current Condition Start: 10/23/19 14:37 Freq: NEEDED Status: Active Protocol: Document 10/23/19 09:35 AB (Rec: 10/23/19 14:49 AB [id number]) Physical Therapy Current Condition Current Condition Evaluation Date 10/23/19 Treatment Diagnosis CVA; difficulty in walking Onset Date 10/22/19 M3 PT-IP Subjective Start: 10/23/19 14:37 Freq: NEEDED Status: Active Protocol: Document 10/24/19 11:41 KS (Rec: 10/24/19 13:09 KS [id number]) Subjective Physical Therapy Visit Type Type Treatment Note Visit Start Time 11:41 Visit Stop Time 12:05 Total Visit Minutes [address] CLERK Visits 1 Physical Therapy Visit Comments Patient Comments pt is agreeable to do PT Therapy Pain Assessment Pain Present Pain Present Denied Pain M4 PT-IP Mobility and Gait Start: 10/23/19 14:37 Freq: NEEDED Status: Active Protocol: Document 10/24/19 11:41 KS (Rec: 10/24/19 13:09 KS [id number]) PT-Bed Mobility Assessment Supine to Sit Supine to Sit Standby Assistance Scooting Scooting to Edge of Bed Standby Assistance PT-Transfer Assessment Sit to and From Stand Sit to and from Stand Contact Guard Assistance,Use of Upper Extremities Equipment Transfer Assistive Device Gait Belt,Front Wheeled Walker Orthotic/Prosthetic Devices or Brace: No Transfers Transfer Destination Bed,Chair Transfer Technique pt ambulated w/ FWW Transfer Ability Level of Assist Standby Assistance,Contact Guard Assistance,1 Person Assistance,Use of Upper Extremities Comments Mobility Comments Pt in bed and asleep upon arrival from therapy. Sternal rub needed to fully awaken. Pt SBA for sup<>sit and scooting EOB. Pt CGA for sit<>stand w/ FWW. Pt then performed 30 seconds weight shifting and then ambulated ~100 ft w/ FWW and CGA w/ cues for FWW management and upright posture . Pt moved impulsively and has poor safety awareness. Pt returned to room and CGA for stand<>sit EOB, and then decided he wanted to sit in the chair. Pt transferred to chair CGA, left in chair w/ AT RISK SPECIALIST in room and all needs in reach. Gait Assessment Gait Gait Assistance Required: Contact Guard Assist,1 Person Assist Distance (Feet) 100 Able to Maintain Weight Bearing Status Yes During Gait Assistive Devices Assistive Device Gait Belt,Front Wheeled Walker Orthotic/Prosthetic Devices or Brace: No Gait Deviations General Gait Pattern Antalgic,Decreased Stride Length,Decreased Feet Clearance,Flexed Trunk Factors Limiting Gait Function Factors Limiting Gait Function Decreased Activity Tolerance, Decreased Strength,Difficulty Following Directions,Poor Balance,Poor Safety Awareness Comments Gait Comments Pt ambulated ~100 ft w/ FWW and cues for FWW management and upright posture. Will assess ambulation w/ SPC this afternoon if appropriate. PT-Balance Assessment Sitting Balance and Reactions Static Sitting Balance Ability Good Dynamic Sitting Balance Ability Good Standing Balance and Reactions Static Standing Balance Ability Fair Dynamic Standing Balance Ability Fair Device Used without AD M5 PT-IP Objective Assessments Start: 10/23/19 14:37 Freq: NEEDED Status: Active Protocol: Document 10/23/19 09:35 AB (Rec: 10/23/19 14:49 AB [id number]) Orientation Orientation/Cognition Level of Alertness Alert Orientation Name,Age,Birthday,Month,Year, Place,Situation Safety Awareness Decreased Safety Awareness Gross Range of Motion Lower Extremity ROM Assessment Within Functional Limits Strength Lower Extremity Strength Assessment Left Impaired Hip 4-/5 Knee 4-/5 Ankle 3/5 M6 PT-IP Treatment Start: 10/23/19 14:37 Freq: NEEDED Status: Active Protocol: Document 10/24/19 11:41 KS (Rec: 10/24/19 13:09 KS [id number]) Physical Therapy Treatment Education Education Provided Safety M7 PT-IP Assessment and Plan Start: 10/23/19 14:37 Freq: NEEDED Status: Active Protocol: Document 10/24/19 11:41 KS (Rec: 10/24/19 13:09 KS [id number]) PT Summary Assessment and Plan Potential Rehabilitation Potential Good Status of Condition at Evaluation Stable Summary Impairments Pain,ROM,Strength,Balance, Coordination,Sensation,Tone, Cognition,Bed Mobility, Transfers,Gait,Activity Tolerance Assessment Summary Pt SBA to CGA for bed mobility and transfers, CGA for ambulation w/ FWW and cues for safety awareness, upright posture, and FWW management. Pt moves impulsively and needs reminders for safety. Pt ambualted ~100 ft w/ FWW w/o LOB and no c/o of SOB or fatigue. Will trial ambulation w/ SPC this PM to assess appropriateness. D/c depending on progress and safety awareness. Goals Bed Mobility Goal Independent Transfer Goal Independent,Cane Gait Goal Independent,Cane Gait Distance 200 Other Goals improve ambulation without AD 200 ft I Days to Meet Goals 5 Frequency of Treatment Frequency Of Treatment Twice a Day Treatment Plan Physical Therapy Treatment Plan Bed Mobility Training,Transfer Training,Gait Training, Therapeutic Exercise,Balance Retraining,Discharge Planning, Hot or Cold Pack,Neuromuscular Re-ed,Coordination Retraining Recommendations To Nursing Amount of Assist Needed 1 Person Assist Discharge Recommendations PT Discharge Recommendations Home with Assistance,Acute Rehab,Outpatient PT Equipment Needed for Home Before FWW/SPC if not safe without AD Discharge Transportation Needs at Discharge Private Vehicle
--- NOTE | 2019-10-24 14:29 | PC.NURSE ---
Addendum entered by Karely Singh R.N. 10/24/19 15:22: Late Entry: Patient had an episode of a.flutter this morning, with p up to 130. Given bp meds and he was better. BP up to 140/100, later down. He is resting comfortably now and bp down to 130s/80s and pusle in the low 100s. Original Note: Patient is doing a bit better today, answering questions more appropriately. He still has a delay when thinking about answers and questions. His NIH stroke scale was a 2. Up with physical therapy and working with speech and ot. He will most likely be going to an acute rehab facility for more rehab. No other deficits pertaining to his frontal lobe cva. Voiding per urinal now.
--- NOTE | 2019-10-24 15:12 | CM.IDA ---
Initial DCP Assessment Note Patient is an 78 yo male, resident of [place]. Patient admitted w/confirmed stroke. PCP: Robbie Tejada Payer: [facility]/[employer] Met w/patient and his gf yesterday, introduced CAPSULE MACHINE OPERATOR role. Patient lives alone, gf Alyssa lives next door and often sees patient daily. Patient is indp at baseline. Today, therapies recommending acute inpt rehab vs SNF. Patient being seen by DOMESTIC VIOLENCE COUNSELOR/PT/OT, see notes for detail. Patient/gf agree that acute inpt should be attempted and request [facility] as first choice and [facility] as a b/u. [place], [facility], faxed to both of these locations to get referral process started. This CAPSULE MACHINE OPERATOR unable to contact son/DPOA Severo Duron today ([facility]) but will attempt to contact and update on plan tomorrow, per patient's request. Following closely, hope to secure acute inpt rehab by tomorrow Monday10.25.19 on patient's behalf JEREMY Collins
--- NOTE | 2019-10-24 15:27 | ST.OPTN ---
Visit Care Team Role Provider Type Robbie Tejada MD Primary Care Provider Non-Staff Address: [address] [place] [address], [place], [address] Willian Aguilera DO Emergency Provider Physician Referring Provider Address: [address] [place] [address], [address] EDDIE Napoles Admit Provider Physician Attending Provider Address: [address] [place] [address], [id number] JOURNEYMAN PLUMBER Treatment Note JOURNEYMAN PLUMBER Treatment Note Start: 10/23/19 10:16 Freq: Status: Active Protocol: Document 10/24/19 14:57 T[facility] (Rec: 10/24/19 15:27 TLC [id number]) Speech Pathology Treatment Note Session Time Visit Start Time 14:35 Visit Stop Time 14:55 Total Visit Minutes 20 Setting Treatment Setting Acute Care Visit Type Note Type Treatment Note Subjective Observations/Patient Presentation Patient seen lying in bed with eyes closed, awoke to my voice. Per nursing and OT, patient communicating better today, but still having difficulty expressing complex thoughts. Objective Short Term Goals Patient will demonstrate appropriate sustained attention to tasks in order to participate in further assessment and treatment. Patient will communicate complex ideas/thoughts effectively. Treatment Activities Patient completed structured activities targeting word finding such as confrontation naming and sentence formulation without difficulty . He had a difficult time when asked to elaborate on topics and seemed distractible, though he denied difficulty concentrating. When asked about the effect of his stroke , he stated I'm trying to formulate an answer to you that would be factual, but it is difficult. This could indicate poor awareness/ insight into deficits or impairments in expression of complex ideas. No impairments observed or reported in short term memory, however, other cognitive impairments in executive functions and problem solving were identified by OT and PT during treatment. Patient is impulsive. Assessment Patient Response to Treatment Good Rehab Potential Good Assessment of Improvement Patient is communicating better today, but continues to exhibit mild-moderate Broca's aphasia affecting his ability to express ideas. Additionally, patient has cognitive impairments which have a negative impact on communication and safety. He would benefit from inpatient rehab as he is not safe to return to living independently . Plan Therapy Recommendations Continue with Current Program
--- NOTE | 2019-10-24 16:40 | PT-IP ANOTE ---
Pt refused therapy this PM d/t fatigue. Pt agrees to ambulate tomorrow AM. Informed nursing that pt seems to be more confused than he was this AM.
--- NOTE | 2019-10-24 17:16 | PC.NURSE ---
Addendum entered by Merary Aviles R.N. 10/24/19 22:48: Pt has been active most evening, Sitting on edge of bed to use urinal. Steady on feet. Tele NSR per ICU staff. IVF now HL per orders. Call light w/in reach, however pt will not use. Bed alarm on for pt safety. Continue w/plan of care. Original Note: Pt assisted w/urinal, SBA, tolerated well Lungs clear, SpO2 97% RA. IVF NS @ 100cc/he infusing via pump w/o incidence. Some confusion/ forgetfulness noted at times, NIH = 6 Call light w/in reach, bed alarm on for pt safety.
--- NOTE | 2019-10-24 17:37 | P.PN_ITS ---
Subjective Subjective Date Patient Seen: 10/24/19 Interval history: The patient is an 78-year-old male who was admitted to the hospital for dysarthria/aphasia. Head CT confirmed a frontal lobe CVA. MR showed right frontal CVA with hemorrhagic transformation. This a.m. patient was noted in atrial flutter with RVR, ventricular rate in the 100-120 range. He denies palpitations. Patient has improvement in speech communication. He continues to exhibit deficits in attention, a bit impulsive with movement with poor safety awareness, and difficulty with more complex cognitive processing. Exam Vital Signs (past 8 hours): - 10/24/19 11:45 10/24/19 15:30 10/24/19 17:00 Temperature 98.0 F 97.1 F L Pulse Rate 120 H 119 H Respiratory Rate 18 20 Blood Pressure 134/80 140/98 H Pulse Oximetry 95 96 96 Oxygen Delivery Method Room Air Oxygen Flow Rate 0 Narrative Exam Narrative: General: Alert, oriented Neurological: No dysarthria, mild word-finding difficulties Objective Labs Result Diagrams: 10/23/19 05:28 10/23/19 05:28 Assessment & Plan Assessment & Plan narrative: Brandon Duron is it 78-year-old male with what appears to be a history of hypertension, coronary artery disease, and hyp erlipidemia who has sustained a right frontal lobe infarct with hemorrhagic conversion. 1. Subacute infarction of the right frontal lobe, with hemorrhagic transformation, present on admission -presented with speech difficulties which are improving -MRI of the brain: Moderate-sized infarct in the right frontal lobe. Findings consistent with parenchymal hemorrhagic conversion and surrounding edema. Chronic microvascular ischemic disease. Prior lacunar infarct in the right basal ganglia. Small right frontal lateral meningioma. Subtle FLAIR signal hyperintensity in the splenium of the corpus callosum of uncertain clinical significance.BRAIN MR ANGIOGRAM: No large vessel occlusion seen. NECK MR ANGIOGRAM: No large vessel occlusion. Dominant left vertebral artery with the right vertebral artery terminating as PICA. -Echo cardiac: LV function normal, ejection fraction 60 65%, right atrial enlargement noted, [id number] mitral regurgitation -patient with hemorrhagic conversion, therefore initially held blood thinners -atrial flutter noted on telemetry 10/24/2019 and patient has remained in atrial flutter during course of the day -Cognitive impairment unknown if temporary or gradual, suspect acute related to frontal lobe infarction -Fall precautions in place due to patient being compulsive -diet is dysphagia mechanical soft, honey consistency liquids per ST -continue ST/PT/OT -start aspirin 81 mg daily on 10/25/2019 (day 3 hospitalization) -start anticoagulation with warfarin or DOAC in about 2 weeks for atrial flutter 2. Atrial flutter, new diagnosis -likely etiology of acute CVA -noted on telemetry 10/24/2019 -ventricular rate 100-120 on patient's routine carvedilol 25 mg b.i.d. -add diltiazem SR 60 mg b.i.d. for rate control -start anticoagulation in about 2 weeks 3. Essential hypertension, currently under control, present on admission -continue carvedilol 25 mg b.i.d. -added diltiazem SR 60 mg b.i.d. for atrial flutter rate control -discontinued felodipine 4. Hyperlipidemia, chronic, present on admission -Continue home dose of atorvastatin 40 po daily DVT prophylaxis: heparin 5000 units subcu b.i.d. to start on 10/25/2019 Anticipate transfer to intermediate once a bed is available. Quality VTE Deep Vein Thrombosis/Pulmonary Embolism Present on Admission: No
[2019-10-24] MEDS: ATORVASTATIN 20 MG TABLET 40 MG PO (21:34)
[2019-10-24] MEDS: GABAPENTIN 300 MG CAPSULE PO (21:34)
[2019-10-24] MEDS: dilTIAZem SR 60 MG PO (21:35)
[2019-10-25 03:30] VITALS: BP 144/81; PULSE 104; RESP 16; TEMP 36.3; O2SAT 96
--- NOTE | 2019-10-25 03:50 | PC.NURSE ---
Patient is oriented except to day of month. Continues to have difficulty at times with word finding and sometimes delay in responses. NIH = 1. Breath sounds CTA with RA sat of 96%. HR irregular and tachy in low 100's. [address] Denies nausea. BT hypoactive; abdomen is soft. Voiding per urinal; denies dysuria, frequency or urgency. Is able to move self in bed. Stands at bedside with walker to void; needs assistance to get up into standing position; gait not assessed. Denies pain. Wearing bilateral calf SCD's. Is impulsive and forgets to use call light. Fall risk score is high and bed alarm is activated.
[2019-10-25] MEDS: PANTOPRAZOLE 20 MG TABLET PO (06:25)
[2019-10-25 08:04] VITALS: BP 119/78; PULSE 98; RESP 17; TEMP 37.7; O2SAT 98
--- NOTE | 2019-10-25 08:15 | ST.IPTN ---
Visit Care Team Role Provider Type Robbie Tejada MD Primary Care Provider Non-Staff Address: [address] [place] [address], [place], [address] Willian Aguilera DO Emergency Provider Physician Referring Provider Address: [address] [place] [address], [address] EDDIE Napoles Admit Provider Physician Attending Provider Address: [address] [place] [address], [address] BUTCHER'S ASSISTANT Treatment Note BUTCHER'S ASSISTANT Treatment Note Start: 10/23/19 10:16 Freq: Status: Active Protocol: Document 10/25/19 11:11 TLC (Rec: 10/25/19 11:18 TLC [id number]) Speech Pathology Treatment Note Session Time Visit Start Time 08:00 Visit Stop Time 08:20 Total Visit Minutes 20 Setting Treatment Setting Acute Care Visit Type Note Type Treatment Note Subjective Observations/Patient Presentation Patient sleeping in bed, but awoke to my voice and agreed to participate in therapy. No friends or family present in the room. Objective Short Term Goals Patient will demonstrate appropriate sustained attention to tasks in order to participate in further assessment and treatment. Patient will communicate complex ideas/thoughts effectively Treatment Activities Completed swallow screen. No signs of oral or pharyngeal impairment observed. Recommend upgrade diet to regular/ general with thin liquids. Provided patiet with written strategies for word finding. Attempted to have patient complete word finding activity of naming 3 synonyms for a given word. He required verbal cues for attention and was able to name 1-2 synonyms for words, but unable to accurately name 3 synonyms for any of the words. Patient appeared tired and stating he would work on tasks later. Left deduction puzzle in room for patient to attempt. Assessment Patient Response to Treatment Fair Rehab Potential Good Assessment of Improvement Patient communicated thoughts/ ideas successfully today, though his responses were somewhat slow and he continues to have a somewhat flat affect. OT reports ongoing impairments in problem solving /reasoning negatively impacting safety. He would benefit from inpatient rehab to return to prior level of functioning (home independently). Plan Therapy Recommendations Continue with Current Program
[2019-10-25] MEDS: carvediloL 25 MG TABLET PO (09:50)
[2019-10-25] MEDS: dilTIAZem SR 60 MG PO (09:50)
[2019-10-25] MEDS: ASPIRIN EC 81 MG TABLET PO (09:50)
[2019-10-25] MEDS: HEPARIN 5,000 UNIT/ML VIAL 5000 UNIT SUBCUT (09:51)
[2019-10-25] MEDS: SODIUM CHLORIDE 0.9% FLUSH 10 ML IV (09:52)
--- NOTE | 2019-10-25 10:00 | OT.IP.TRT ---
Current Diagnoses Cerebral infarction, unspecified (10/22/19) Occupational Therapy Treatment Note M2 OT-IP Current Condition Start: 10/23/19 18:20 Freq: Status: Active Protocol: Document 10/23/19 13:25 [facility] (Rec: 10/23/19 19:09 [facility] [id number]) Occupational Therapy Current Condition Current Condition Evaluation Date 10/23/19 Treatment Diagnosis Subacute infarction of right frontal lobe Diagnosis Onset Date 10/22/19 M3 OT- IP Subjective and Pain Start: 10/23/19 18:20 Freq: Status: Active Protocol: Document 10/25/19 10:00 [facility] (Rec: 10/25/19 13:21 [facility] [id number]) OT- Subjective Occupational Therapy Visit Type Type Treatment Note Visit Start Time 10:00 Visit Stop Time 10:56 Total Visit Minutes 56 Occupational Therapy Visit Comments Patient Comments Pt agreed to work with OT. Pt more expressive and able to state his needs today better. Patient/Caregiver Goals To go to skilled rehab. OT Pain Assessment Pain When Pain Assessed At Rest Pain Present Pain Present Denied Pain M6 OT- IP Functional Cognition Start: 10/23/19 18:20 Freq: Status: Active Protocol: Document 10/25/19 10:00 [facility] (Rec: 10/25/19 13:21 [facility] [id number]) Cognitive Factors Limiting Selfcare Function Cognitive Ability Level of Alertness Alert Patient Orientation Name,Month,Date,Year,Day of Week,Place,Situation Attention Span Ability Capable of Focused Attention, Capable of Sustained Attention Ability to Follow Commands Able to Follow One Step Commands Memory Description Short Term Impaired,Working Impaired Safety Awareness Underestimates Need for Assistance Problem Solving Ability Unable to Identify Errors, Needs Assist to Identify Solutions Executive Function Ability Unable to Filter Distractions, Unable to Organize Plans, Unable to Remember Details Cognitive Tests ACL Pt initially scored 3.4, but after second demonstration for whip stitch task,pt able to score at 4.2 which implies pt to have 24hour supervision to remove dangerous objects outside on the visual field and solve problems that arise from minor changes in the environment. Pt may need prompts to do daily self -care tasks, provide meals,medication, and financial services agent. Cognitive Comments Cognitive Assessment Comments Pt able to express his need better today. Pt appears to have better insight to his disabilities as well. Pt needing increased time to add two digit numbers together and find the average. Pt did better to 3 step task today. M7 OT- IP Mobility and Balance Start: 10/23/19 18:20 Freq: Status: Active Protocol: Document 10/25/19 10:00 [facility] (Rec: 10/25/19 13:21 [facility] [id number]) OT- Bed Mobility Assessment Rolling Type of Rolling Roll to Right Level of Assistance Standby Assistance Supine to Sit Supine to Sit Assist Standby Assistance Sit to Supine Sit to Supine Assist Standby Assistance OT-Transfer Assessment Sit to and From Stand Sit to and from Stand Contact Guard Assistance Comments Mobility Comments Trial of transfer from bed to recliner without device and note pt unsteady on his feet and mainly just trying to grab the armrest of the recliner so able to sit down. OT- Balance Assessment Standing Balance and Reactions Dynamic Standing Balance Ability Poor M8 OT- IP Objective Assessments Start: 10/23/19 18:20 Freq: Status: Active Protocol: Document 10/23/19 13:25 [facility] (Rec: 10/23/19 19:09 [facility] [id number]) OT Gross Range of Motion Upper Extremity Range of Motion Assessment Within Functional Limits OT Strength Comments Strength Comments BUE 4-/5 to 4/5 from proximal to distal. OT- Coordination Assessment Upper Extremity Finger to Nose Test Within Functional Limits Comments Coordination Comments Pt right hand 36.5 seconds and and left hand 45 seconds which both rack him below the 10th percentile for his age group. On 10/24 Right hand 33.5 and left hand 40.5. OT-Muscle Tone Assessment Muscle Tone WNL Yes OT Sensation Assessment Comments Summary Comments Pt decreased proprioception for left elbow to wrist and right wrist. M9 OT- IP Assessment and Plan Start: 10/23/19 18:20 Freq: Status: Active Protocol: Document 10/25/19 10:00 [facility] (Rec: 10/25/19 13:21 [facility] [id number]) OT Summary Assessment and Plan Potential Rehabilitation Potential Good Analytic Complexity at Evaluation Low Summary OT Impairments Balance,Functional Cognition, Functional Mobility,Self- Feeding,Grooming,Dressing, Toileting,Bathing,Toilet Transfers,Shower Transfers, Activity Tolerance Progress Towards Goals Progressing Toward Goals Assessment Summary Pt improvement for getting his word out today. Pt also had improvement with FMS on decreased time of 3 seconds for right and 4.5 sec. on the left for 9 hole peg test for both hands. Pt's score for still ranks him at around the 10th percentile. Pt will strongly benefit from rehab prior to going home as prior pt was completely independent-loves to read, cook, fix things and active with his stocks. Goals Self-Feeding Goal Independent Grooming Goal Independent Dressing Goal Independent Toileting Goal Independent Bathing Goal Independent Toilet Transfer Goal Independent Shower Transfer Goal Independent Days to Meet Goals 18 Frequency of Treatment Frequency Of Treatment Once a Day Treatment Plan OT Treatment Plan ADL Training,Functional Cognition Training,Functional Mobility,Patient/Family Education,Discharge Planning Discharge Recommendations OT Discharge Recommendations SNF Rehab,Acute Rehab Home Equipment Needs Shower chair Transportation Needs at Discharge Private Vehicle
--- NOTE | 2019-10-25 11:17 | PT.IPTN ---
Current Diagnoses Cerebral infarction, unspecified (10/22/19) Physical Therapy Treatment Note M2 PT-IP Current Condition Start: 10/23/19 14:37 Freq: NEEDED Status: Active Protocol: Document 10/23/19 09:35 AB (Rec: 10/23/19 14:49 AB [id number]) Physical Therapy Current Condition Current Condition Evaluation Date 10/23/19 Treatment Diagnosis CVA; difficulty in walking Onset Date 10/22/19 M3 PT-IP Subjective Start: 10/23/19 14:37 Freq: NEEDED Status: Active Protocol: Document 10/25/19 10:53 KS (Rec: 10/25/19 12:30 KS [id number]) Subjective Physical Therapy Visit Type Type Treatment Note Visit Start Time 10:53 Visit Stop Time 11:17 Total Visit Minutes 24 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 of 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 LAB 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 Visits 2 Physical Therapy Visit Comments Patient Comments pt is agreeable to do PT Therapy Pain Assessment Pain Present Pain Present Denied Pain M4 PT-IP Mobility and Gait Start: 10/23/19 14:37 Freq: NEEDED Status: Active Protocol: Document 10/25/19 10:53 KS (Rec: 10/25/19 12:30 KS [id number]) PT-Bed Mobility Assessment Scooting Scooting to Edge of Bed Standby Assistance PT-Transfer Assessment Sit to and From Stand Sit to and from Stand Contact Guard Assistance,Use of Upper Extremities Equipment Transfer Assistive Device Gait Belt,Straight Cane Transfers Transfer Destination Chair Transfer Technique pt ambulated w/ SPC Transfer Ability Level of Assist Standby Assistance,Contact Guard Assistance,1 Person Assistance,Use of Upper Extremities Comments Mobility Comments Pt in chair finishing treatment w/ OT upon arrival from PT. Pt SBA for scooting to EOC and CGA w/ use of UE and SPC for sit<>stand. Upon standing, pt had slight posterior LOB, needing Min A to recover. Pt then ambulated ~180 ft w/ SPC and CGA. Pt demonstrated goos use of SPC. Slight LLE foot drop identified towards end of ambulation, and pt reported fatigue after ambulation. Pt returned to room, CGA and cues for stand<>sit. Pt left in chair w/ all needs in reach. Gait Assessment Gait Gait Assistance Required: Contact Guard Assist,1 Person Assist Distance (Feet) 180 Able to Maintain Weight Bearing Status Yes During Gait Assistive Devices Assistive Device Gait Belt,Straight Cane Orthotic/Prosthetic Devices or Brace: No Gait Deviations General Gait Pattern Antalgic,Decreased Stride Length,Decreased Feet Clearance,Flexed Trunk Factors Limiting Gait Function Factors Limiting Gait Function Decreased Activity Tolerance, Decreased Strength,Difficulty Following Directions,Poor Balance,Poor Safety Awareness Comments Gait Comments Please refer to mobility section for details. PT-Balance Assessment Sitting Balance and Reactions Static Sitting Balance Ability Good Dynamic Sitting Balance Ability Good Standing Balance and Reactions Static Standing Balance Ability Fair Dynamic Standing Balance Ability Poor Device Used SPC M5 PT-IP Objective Assessments Start: 10/23/19 14:37 Freq: NEEDED Status: Active Protocol: Document 10/23/19 09:35 AB (Rec: 10/23/19 14:49 AB [id number]) Orientation Orientation/Cognition Level of Alertness Alert Orientation Name,Age,Birthday,Month,Year, Place,Situation Safety Awareness Decreased Safety Awareness Gross Range of Motion Lower Extremity ROM Assessment Within Functional Limits Strength Lower Extremity Strength Assessment Left Impaired Hip 4-/5 Knee 4-/5 Ankle 3/5 M6 PT-IP Treatment Start: 10/23/19 14:37 Freq: NEEDED Status: Active Protocol: Document 10/25/19 10:53 KS (Rec: 10/25/19 12:30 KS [id number]) Physical Therapy Treatment Education Education Provided Safety M7 PT-IP Assessment and Plan Start: 10/23/19 14:37 Freq: NEEDED Status: Active Protocol: Document 10/25/19 10:53 KS (Rec: 10/25/19 12:30 KS [id number]) PT Summary Assessment and Plan Potential Rehabilitation Potential Good Status of Condition at Evaluation Stable Summary Impairments Pain,ROM,Strength,Balance, Coordination,Sensation,Tone, Cognition,Bed Mobility, Transfers,Gait,Activity Tolerance Assessment Summary Pt continues to require SBA to CGA for transfers. CGA for ambulation. Pt had posterior LOB upon standing and needed Min A to recover. L foot drop present during ambulation after ~100 ft. Pt has low tolerance for activity, reporting fatigue after ~150 ft ambulation today. Pt will require SNF to improve gait, balance, and tolerance for activity. Goals Bed Mobility Goal Independent Transfer Goal Independent,Cane Gait Goal Independent,Cane Gait Distance 200 Other Goals improve ambulation without AD 200 ft I Days to Meet Goals 5 Frequency of Treatment Frequency Of Treatment Twice a Day Treatment Plan Physical Therapy Treatment Plan Bed Mobility Training,Transfer Training,Gait Training, Therapeutic Exercise,Balance Retraining,Discharge Planning, Hot or Cold Pack,Neuromuscular Re-ed,Coordination Retraining Recommendations To Nursing Amount of Assist Needed 1 Person Assist Discharge Recommendations PT Discharge Recommendations SNF Rehab,Acute Rehab Transportation Needs at Discharge Wheelchair/Cabulance
[2019-10-25 12:09] VITALS: BP 113/72; PULSE 88; RESP 24; TEMP 36.6; O2SAT 95
--- NOTE | 2019-10-25 13:46 | PM.DS.1 ---
History of Present Illness History of Present Illness Chief complaint: Friend thinks possible stroke Narrative: Brandon Duron is an 78-year-old male with hypertension, hyperlipidemia, and GERD, was last seen ?normal? 2 days ago and was brought in by his neighbor today for difficulty speaking. It is difficult to obtain a history from him even though his speech is clear. He does have a delayed response to questions and seems to have word-finding problems currently. Of history is obtained from the medical record and of the current workup. Per the emergency room provider the patient was in his usual state of health as of 2 days ago and was out having dinner with a friend cristal when she noticed that he was having difficulty speaking. She brought him in and the stroke protocol was invoked. I was able to reach who I feel is his significant other, Alyssa and she states that he has not been himself for at least a couple of weeks but it seemed to get really bad over the last 2 days. They were together at her house at about 330 this afternoon and he left in his car where she later found him in his car asleep at the end of her driveway. She banged on the window and woke him up and said we are not going to dinner and till 5:30 p.m. They did have dinner and she told him that she needed to take him to the hospital that he was not acting like his normal self. She said that he did not resist her driving him in his car to the hospital. His friend has a copy of his medication list which is in his wallet now at his home and has contact information for both of his adult children and will be bringing that information to the hospital in the morning. While in the ED, he underwent a brain CT and a CT angio imaging studies. He was found to have a hypodensity in the right frontal lobe consistent with subacute infarction. .Initial CT scan indicated Possible tiny foci of early hemorrhagic transformation in the inferior aspect of the infarcted territory. This was followed by the CTA finding of No definitive hemorrhagic transformation in the infarcted territory. He was also found to have a A 1.5 x 2.0 x 2.1 cm extra-axial mass in the right frontal area, most likely a meningioma and recommended followup MRI. ED NIH score was 1, temp 98.5?, blood pressure 151/90, heart rate 129, respiratory rate 20, oxygen saturation of 90% on room air, weight 111.5, BMI 33.3. WBC 10.1, RBC 4.47, hemoglobin 15.8, platelet count 197, D-dimer was 419 which is normal for his age sodium 136, potassium 3.5, chloride 98, CO2 28, BUN 14, creatinine 0.87, GFR is greater than 60, glucose 177, hemoglobin A1c is 6.1 calcium 9.7, liver enzymes are within normal limits, troponin CK-MB is negative and COVID-19 was negative. Discharge Providers Provider Date of admission: 10/22/19 22:20 Discharge Date: 10/25/19 Primary care physician: Robbie Tejada MD Consults: 10/22/19 22:27 Consult to Discharge Planning Routine Comment: Consult to Occupational Therapy Evaluate & Treat Comment: Physician Instructions: Evaluate and treat Consult to Physical Therapy Evaluate & Treat Comment: Physician Instructions: Evaluate and Treat Consult to Speech Therapy Evaluate & Treat Comment: Physician Instructions: Evaluate and treat Discharge provider: Cachorro Lopez MD Summary Hospital Course Discharge Diagnosis: 1. 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 Atrial flutter unknown chronicity 3. Essential hypertension 4. Hyperlipidemia 5. History of impaired balance without fall Brandon Duron is it 78-year-old male with history of hypertension, coronary artery disease, and hyperlipidemia who has sustained a right frontal lobe infarct with hemorrhagic conversion. 1. Subacute infarction of the right frontal lobe, with hemorrhagic transformation, present on admission -presented with significant speech difficulties which are improving over the past couple of days -MRI of the brain: Moderate-sized infarct in the right frontal lobe. Findings consistent with parenchymal hemorrhagic conversion and surrounding edema. Chronic microvascular ischemic disease. Prior lacunar infarct in the right basal ganglia. Small right frontal lateral meningioma. Subtle FLAIR signal hyperintensity in the splenium of the corpus callosum of uncertain clinical significance. -BRAIN MR ANGIOGRAM: No large vessel occlusion seen. NECK MR ANGIOGRAM: No large vessel occlusion. Dominant left vertebral artery with the right vertebral artery terminating as PICA. -Echo cardiac: LV function normal, ejection fraction 60 65%, right atrial enlargement noted, [id number] mitral regurgitation -patient with hemorrhagic conversion, therefore initially held blood thinners -atrial flutter noted on telemetry 10/24/2019 and patient has remained in atrial flutter since then -Cognitive impairment likely related to CVA has been improving -Fall precautions in place due to patient being compulsive -diet is dysphagia mechanical soft, honey consistency liquids per ST -continue ST/PT/OT -restarted aspirin 81 mg daily on 10/25/2019 (day 3 hospitalization) -start anticoagulation with warfarin or DOAC in about 2 weeks for atrial flutter 2. Atrial flutter, new diagnosis -likely etiology of acute CVA -noted on telemetry 10/24/2019 but likely was present on admission and read as ectopic atrial rhythm on his EKG, patient has remained in atrial flutter -ventricular rate 100-120 on patient's routine carvedilol 25 mg b.i.d. -added diltiazem SR 60 mg b.i.d. with improvement in ventricular rate, currently 80s to 90s at rest -start oral anticoagulation in about 2 weeks 3. Essential hypertension, currently under control, present on admission -continue carvedilol 25 mg b.i.d. -added diltiazem SR 60 mg b.i.d. for atrial flutter rate control -discontinued felodipine -blood pressures are well controlled 4. Hyperlipidemia, chronic, present on admission -Continue home dose of atorvastatin 40 po daily Patient has made good progress in acute stroke recovery and would benefit from additional time at assisted for ST/OT/PT rehab. Total time greater than 35 minutes in discharge day evaluation and management services. Exam Vital Signs (past 8 hours): - 10/25/19 08:04 10/25/19 12:09 Temperature 99.8 F H 98 F Pulse Rate 98 H 88 Respiratory Rate 17 24 Blood Pressure 119/78 113/72 Pulse Oximetry 98 95 Oxygen Delivery Method Room Air Oxygen Flow Rate 0 Narrative Exam Narrative: General: Alert and oriented male in no acute distress Neurological: Speech fluent, no focal weakness Objective Labs Result Diagrams: 10/23/19 05:28 10/23/19 05:28 Discharge Plan Discharge Plan Patient Disposition: SNF Transfer to: [facility] Consult as needed: Dental, Hearing, Mental health, Podiatry and Vision Discharge orders & Medications Prescriptions: New acetaminophen 325 mg Tablet 650 mg PO Q4HR PRN (Reason: Fever/Mild Pain (1-3)) Qty: 30 RF: 0 diltiazem HCl 60 mg Capsule,Extended Release 12 Hr 60 mg PO BID Qty: 60 RF: 0 Continued atorvastatin 40 mg tablet 40 mg PO BEDTIME RF: 0 carvedilol 25 mg tablet 25 mg PO BID RF: 0 chlorthalidone 25 mg tablet 25 mg PO DAILY RF: 0 methotrexate sodium 2.5 mg tablet 17.5 mg PO WEEKLY RF: 0 omeprazole 20 mg capsule,delayed release(DR/EC) 20 mg PO DAILY RF: 0 folic acid 1 mg tablet 1 mg PO DAILY RF: 0 aspirin [Adult Low Dose Aspirin] 81 mg Tablet,Delayed Release (Dr/Ec) 81 mg PO DIRECTED RF: 0 gabapentin 300 mg PO BEDTIME RF: 0 Discontinued felodipine 5 mg tablet extended release 24 hr 5 mg PO DAILY RF: 0 Follow up/Referrals: Robbie Tejada MD [Primary Care Provider] - Discharge Health Status Multidrug resistant organism: No MDRO Precautions: [place] Diet/Activity/Treatments Diet: Regular Liquid consistency: Honey Consistency Food texture: Soft [facility] Reason for rehabilitation: Therapy following stroke Rehab type: Physical therapy, Occupational therapy and Speech therapy Discharge Data Primary Care Provider: Robbie Tejada Quality VTE Deep Vein Thrombosis/Pulmonary Embolism Present on Admission: No
[2019-10-25 13:55] LABS: COVID19 -Nasal RAPID Negative (Negative)
--- NOTE | 2019-10-25 14:05 | CM.DPC ---
DCP cont: Faxed signed med list and PASRR to [facility] at fax # [phone]. Fax confirmation scanned in. Joie Sanderson, Care Vehicle Painter
--- NOTE | 2019-10-25 14:25 | PC.NURSE ---
Patient is doing better today, he still has delayed response but is speaking well. He is going to [facility] at 3pm and his NIH stroke scale was 2.
--- NOTE | 2019-10-25 15:38 | CM.DPNOTE ---
DC Note Contacted both [facility] this morning and both stated they had no beds available for patient's admission today, that they didn't expect beds until next week (?) Placed call to August at [facility] and she was able to accommodate patient's admission today. Patient and family agreeable to this plan, This HAZARDOUS WASTE REMOVER able to speak w/patient, fransisco Alyssa and son/DIL (formerly [facility]) on speaker phone at the same time; reviewed dispo options and efforts thus far. Patient/family disappointed about acute inpatient rehab but understood that patient was medically cleared for discharge and required SNF before return home. Son/DIL were quite deana as they explained to patient that after SNF stay if he wanted to travel to the [facility] to live with them they were preparing for this and would welcome patient to stay and be cared for by family. Patient was a little quiet but A+O and able to express agreement w/plan and gratitude towards his family. SADIE Salter, completed the coordination of this DC, RYAN ppk faxed to [facility], RN Karely updated, w/c p/u scheduled for 1500. All aware and agreeable to plan: P: DC to [facility] via w/c van today JEREMY Collins
== END 2019-10-25 15:10 | DRG 64 ==
LOC: ED 22:12 → AC 22:22
PROVIDERS: Admitting Provider Nurse Practitioner Family; Emergency Provider Emergency Medicine; PCP Internal Medicine; Referring Provider Emergency Medicine; Visit Provider Nurse Practitioner Family
DX: I63.9 Cerebral infarction, unspecified (principal); I61.1 Nontraumatic intracerebral hemorrhage in hemisphere, cortical; I48.92 Unspecified atrial flutter; R47.01 Aphasia; R47.1 Dysarthria and anarthria; I10 Essential (primary) hypertension; E78.5 Hyperlipidemia, unspecified; K21.9 Gastro-esophageal reflux disease without esophagitis; Z11.59 Encounter for screening for other viral diseases
CPT/HCPCS: 36415; 70450; 70496; 70498; 70548; 70553; 80053; 80061; 80305; 81003; 82550; 82962; 83036; 83735; 84443; 84484; 85025; 85379; 85610; 85730; 87635; 92507; 92522; 93005; 93306; 96360; 96361; 97116; 97129; 97130; 97161; 97166; 97530; 99285; J1644; Q9967

== ENCOUNTER 2020-12-05 10:59 | Emergency (ER) | payer MEDICARE, OTHER, SELFPAY ==
[2019-10-23 00:42] VITALS: BMI 33.3
[2020-12-05 11:10] VITALS: BP 152/88; PULSE 88; RESP 17; TEMP 36.2; O2SAT 99
--- NOTE | 2020-12-05 11:24 | DI.CT.S_ITS ---
PROCEDURE: CT HEAD/BRAIN WO CON INDICATIONS: cut head 4 weeks ago growth subcutaneous on Eliquis TECHNIQUE: Noncontrast 4.5 mm thick angled axial sections acquired from the foramen magnum to the vertex, with coronal and sagittal reformats. For radiation dose reduction, the following was used: automated exposure control, adjustment of mA and/or kV according to patient size. COMPARISON: [facility], MR, MR STROKE, 10/23/2019, 10:16. [facility], CT, CT HEAD/BRAIN WO CON, 07/05/2018, 13:21. [facility], CT, CT HEAD/BRAIN WO CON, 10/22/2019, 19:32. FINDINGS: Image quality: Excellent. CSF spaces: Basal cisterns are patent. No extra-axial fluid collections. The ventricles are symmetric in size and shape. Brain: No intracranial bleeds. The patient's known, presumed meningioma can be seen on series 2, image 23 on the right laterally and measures up to 1.9 cm. There is cerebral volume loss for age, with resultant ventricular and sulcal prominence. There are periventricular and deep white matter chronic small vessel ischemic changes. There is a remote, completed right frontal lobe infarction anteriorly and inferiorly and laterally. There is intracranial internal carotid artery atherosclerosis. Skull and face: There is a scalp lesion seen near the right cranial vertex that measures 2.3 by 1.2 by 2.4 cm. The internal contents measure nearly 50 Hounsfield units. No underlying bony lesion can be seen. This cannot be seen on the prior images. Calvarium and visualized facial bones appear intact, without suspicious lesions. Sinuses: Visualized sinuses and mastoids are clear. IMPRESSION: No acute intracranial hemorrhage is seen. 2.4 cm scalp lesion identified. Given the history, this is suspicious for infection. No drainable abscess is seen. Note is made of a completed infarction involving the right frontal lobe anteriorly, inferiorly, and laterally. Stable presumed meningioma seen adjacent to the right frontal lobe laterally. Dictated by: Adonis Young M.D. on 12/05/2020 at 10:57 Approved by: Adonis Young M.D. on 12/05/2020 at 11:02
--- NOTE | 2020-12-05 12:02 | ED_ITS ---
HPI - Skin/Abscess/Foreign Bdy General Chief complaint: Skin/Abscess/Foreign Body Stated complaint: bumped head 4 wks ago/on blood thinners bleeding Time Seen by Provider: 12/05/20 11:24 Source: patient Mode of arrival: Ambulatory Limitations: no limitations History of Present Illness HPI narrative: Patient is a 80 should hold male who presents with growth on the top of his head. He is on Eliquis for atrial fibrillation he cut his head 4 weeks ago on the car getting groceries out of the trunk. It bled immediately. It continued to ooze despite dressing for a number of weeks. He was seen by primary care 3 days ago for the first time who tried cauterizing it. Pressure dressing placed. Since then it has had intermittent bleeding he has put powdery anticoagulation stuff on it to help it stop bleeding. Today it just continues to bleed very slowly He has no headache no nausea vomiting no numbness tingling or weakness. He has an obvious growth at site of laceration. Related Data Home Medications Medication Instructions Recorded Confirmed atorvastatin 40 mg tablet 40 mg PO BEDTIME 07/05/18 10/25/19 carvedilol 25 mg tablet 25 mg PO BID 07/05/18 10/23/19 chlorthalidone 25 mg tablet 25 mg PO DAILY 07/05/18 10/23/19 folic acid 1 mg tablet 1 mg PO DAILY 07/05/18 10/23/19 methotrexate sodium 2.5 mg tablet 17.5 mg PO WEEKLY 07/05/18 10/23/19 omeprazole 20 mg capsule,delayed 20 mg PO DAILY 07/05/18 10/23/19 release aspirin 81 mg tablet,delayed 81 mg PO DIRECTED 10/23/19 10/23/19 release (Adult Low Dose Aspirin) gabapentin 300 mg PO BEDTIME 10/23/19 10/23/19 Previous Rx's Medication Instructions Recorded acetaminophen 325 mg tablet 650 mg PO Q4HR PRN #30 tab 10/25/19 diltiazem HCl 60 mg 60 mg PO BID #60 cap 10/25/19 capsule,extended release 12 hr Allergies Allergy/AdvReac Type Severity Reaction Status Date / Time No Known Drug Allergies Allergy Verified 12/05/20 11:18 Review of Systems Review of Systems Narrative: GENERAL: Denies chills,fever HEENT: Denies throat pain RESPIRATORY: Denies dyspnea, cough, wheezing CARDIOVASCULAR: Denies chest pain, palpitations GASTROINTESTINAL: Denies nausea, vomiting MUSCULOSKELETAL: Denies extremity pain, injury SKIN: See HPI NEUROLOGIC: Denies weakness, dizziness, headache, numbness 8 point review of systems is negative except for those stated above and HPI Patient History Medical History (Updated 12/05/20 @ 13:43 by Marilee Garcia DO) GERD (gastroesophageal reflux disease) HTN (hypertension) Hyperlipidemia Surgical History No pertinent past surgical history Social History household members: none Smoking Status: Never smoker during the past year weight has: remained stable well-balanced diet: daily or most days Type(s) of exercise: walking Smoking Status: Never smoker alcohol intake frequency: holidays/special occasions only Substance Use Type: does not use Exam Initial Vital Signs Initial Vital Signs: Vital Signs Temperature 97.1 F L 12/05/20 11:10 Pulse Rate 88 12/05/20 11:10 Respiratory Rate 17 12/05/20 11:10 Blood Pressure 152/88 H 12/05/20 11:10 Pulse Oximetry 99 12/05/20 11:10 GENERAL: Alert very pleasant 80-year-old male CARDIOVASCULAR: peripheral pulses in tact, cap refill <2 sec RESPIRATORY: No respiratory distress, speaks in full sentences without difficulty EXTREMITIES: Normal range of motion, no clubbing or edema. Neurovascularly intact NEUROLOGICAL: Cranial nerves II through XII grossly intact. Normal gait and speech. SKIN: Right forehead and scalp area at place of small laceration there is daily large growth of about 2.5 cm x 2.5 cm. Small amount of oozing no pulsatile blood. No surrounding erythema nontender to touch Course Orders Ordered: ED Orders 12/05/20 11:24 CT head/brain wo con Stat Discontinued Medications Silver Nitrate/Potassium Nitrate (Silver Nitrate Stick) 2 each TOP NOW ONE Stop: 12/05/20 13:08 Last Admin: 12/05/20 13:34 Dose: 2 each Documented by: SOUTH Vital Signs Vital signs: Vital Signs - 8 hr 12/05/20 11:10 12/05/20 12:12 12/05/20 12:30 Temperature 97.1 F L Pulse Rate 88 90 90 Respiratory Rate 17 Blood Pressure 152/88 H Pulse Oximetry 99 96 96 12/05/20 13:00 12/05/20 13:30 Temperature Pulse Rate 89 89 Respiratory Rate Blood Pressure 172/103 H Pulse Oximetry 97 96 MDM - Skin/Abscess/Foreign Bdy Imaging Data CT scan - head: Radiologist's Impression: PROCEDURE:? CT HEAD/BRAIN WO CON ? INDICATIONS:? cut head 4 weeks ago growth subcutaneous on Eliquis ? TECHNIQUE:? Noncontrast 4.5 mm thick angled axial sections acquired from the foramen magnum to the vertex, with coronal and sagittal reformats.? For radiation dose reduction, the following was used:? automated exposure control, adjustment of mA and/or kV according to patient size.? ? COMPARISON:? [facility], MR, MR STROKE, 10/23/2019, 10:16.? [facility], CT, CT HEAD/BRAIN WO CON, 07/05/2018, 13:21.? [facility], CT, CT HEAD/BRAIN WO CON, 10/22/2019, 19:32. ? FINDINGS:? Image quality:? Excellent.? ? CSF spaces:? Basal cisterns are patent.? No extra-axial fluid collections.? The ventricles are symmetric in size and shape.? ? Brain:? No intracranial bleeds.? The patient's known, presumed meningioma can be seen on series 2, image 23 on the right laterally and measures up to 1.9 cm.? There is cerebral volume loss for age, with resultant ventricular and sulcal prominence.? There are periventricular and deep white matter chronic small vessel ischemic changes.? 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 There is intracranial internal carotid artery atherosclerosis.? ? Skull and face:? There is a scalp lesion seen near the right cranial vertex that measures 2.3 by 1.2 by 2.4 cm.? The internal contents measure nearly 50 Hounsfield units.? No underlying bony lesion can be seen.? This cannot be seen on the prior images.? Calvarium and visualized facial bones appear intact, without suspicious lesions.? ? Sinuses:? Visualized sinuses and mastoids are clear.? IMPRESSION:? No acute intracranial hemorrhage is seen.? ? 2.4 cm scalp lesion identified.? Given the history, this is suspicious for infe ction. No drainable abscess is seen. ? Note is made of a completed infarction involving the right frontal lobe anteriorly, inferiorly, and laterally.? ? Stable presumed meningioma seen adjacent to the right frontal lobe laterally.? ? Dictated by: Adonis Young M.D. on 12/05/2020 at 10:57 ? ? Approved by: Adonis Young M.D. on 12/05/2020 at 11:02 ? MDM Narrative Medical decision making narrative: Patient overall looks well. No significant bleeding from site. There is tissue like mass secondary to a injury. 1300 Dr. Guerra surgery updated on patient's symptoms is states that it sounds like granulation tissue recommend silver nitrate cauterization. Will likely need multiple rounds of cauterization over time. At this time cauterization over tissue stopped all bleeding. Discussed plan with both and . It sounds as though primary care provider is able to cauterize in the office. Recommend he follow up there in return as needed. Discharge Plan Departure Patient Disposition: Home Clinical Impression: Abnormal granulation tissue Instructions: DI for Wound Infection Activity Restrictions/Additional Instructions: *You have been diagnosed with excessive granulation tissue *What to do: I have spoken with a surgeon today Dr. Guerra, who states the gross on top of your head is granulation tissue. It needs to be cauterized with silver nitrate multiple times in order to decrease the growth. You may follow- up with surgery or your primary care provider *Continue to take medications as directed *Follow up with your primary care provider in 2-3 days *Return to ER if you should have increasing bleeding, swelling, redness, confusion or any new, worsening or concerning symptoms Prescriptions: No Action atorvastatin 40 mg tablet 40 mg PO BEDTIME RF: 0 carvedilol 25 mg tablet 25 mg PO BID RF: 0 chlorthalidone 25 mg tablet 25 mg PO DAILY RF: 0 methotrexate sodium 2.5 mg tablet 17.5 mg PO WEEKLY RF: 0 omeprazole 20 mg capsule,delayed release(DR/EC) 20 mg PO DAILY RF: 0 folic acid 1 mg tablet 1 mg PO DAILY RF: 0 aspirin [Adult Low Dose Aspirin] 81 mg Tablet,Delayed Release (Dr/Ec) 81 mg PO DIRECTED RF: 0 gabapentin 300 mg PO BEDTIME RF: 0 acetaminophen 325 mg Tablet 650 mg PO Q4HR PRN (Reason: Fever/Mild Pain (1-3)) Qty: 30 RF: 0 diltiazem HCl 60 mg Capsule,Extended Release 12 Hr 60 mg PO BID Qty: 60 RF: 0 Referrals: Robbie Tjeada MD [Non-Staff] -
[2020-12-05 12:12] VITALS: PULSE 90; O2SAT 96
[2020-12-05 12:30] VITALS: PULSE 90; O2SAT 96
[2020-12-05 13:00] VITALS: PULSE 89; O2SAT 97
[2020-12-05 13:30] VITALS: BP 172/103; PULSE 89; O2SAT 96
[2020-12-05] MEDS: SILVER NITRATE STICK 2 EACH TOP (13:34)
== END 2020-12-05 13:57 | disposition home or self-care (01) ==
PROVIDERS: Emergency Provider Emergency Medicine
DX: L92.9 Granulomatous disorder of the skin and subcutaneous tissue, unspecified (principal); S01.01XS Laceration without foreign body of scalp, sequela; Z79.01 Long term (current) use of anticoagulants
CPT/HCPCS: 70450; 99283; 99284

== ENCOUNTER → 2022-05-26 11:57 | Outpatient (CLI) | payer MEDICARE, OTHER, SELFPAY ==
[2019-10-23 00:42] VITALS: BMI 33.3
--- NOTE | 2022-05-26 | DI.ECHO.S_ITS ---
[facility]---------+ [facility] +---------+ : : [address] : : : : [id number] : : : : Phone: [phone]+ Echocardiogram Report + + :Name: KALI LEIGH Study Date: 05/26/2022 Height: 72 in : :[facility] ReadingLocation: Weight: 240 lb : : Gender: Male BSA: 2.3 m2 : :: 1940 Age: 81 yrs BP: 167/67 mmHg: :Reason For Study: ARTERIAL DIESASE HR: 55 : :Ordering Physician: JACKIE, : :MELISSA Performed By: ELVIA SEYMOUR : :Referring: MELISSA ROBLERO : + + Interpretation Summary 1) Normal left ventricular size, wall motion, and systolic function (EF 55- 60%). 2) Mildly enlarged right ventricle with normal function. 3) No significant valvular abnormalities. 4) The ascending aorta is mild enlarged at 4.1cm. 5) Compared to the Echo done 10/23/2019, no significant change. Procedure: A two-dimensional transthoracic echocardiogram with color flow and Doppler was performed. The study quality was technically adequate. Comparison is made with the echocardiogram of 10/23/2019. The patient was in normal sinus rhythm during the exam. Left Ventricle: The left ventricle is normal in size. Left ventricular wall thickness is at the upper limits of normal. Proximal septal thickening is noted. Left ventricular systolic function is normal. The ejection fraction is estimated to be 55-60%. Diastolic parameters suggest a pseudonormalization pattern, consistent with probable elevated filling pressures. Right Ventricle: The right ventricle is mildly dilated. The right ventricular systolic function is normal. Atria: The left atrium is moderately dilated. Right atrial size is normal. There is no Doppler evidence for an interatrial shunt. Mitral Valve: There is mild mitral annular calcification. There is mild mitral regurgitation. Aortic Valve: The aortic valve is trileaflet. The aortic valve is mildly calcified. There is no aortic valve stenosis. There is trace aortic regurgitation. Tricuspid Valve: The tricuspid valve is normal in structure and function. The right ventricular systolic pressure is estimated to be at least 35 mmHg based on an estimated right atrial pressure of 3 mm Hg. There is mild tricuspid regurgitation. Pulmonic Valve: The pulmonic valve is not well visualized. There is mild pulmonic regurgitation. Great Vessels: The aortic root is borderline dilated. The ascending aorta is mildly enlarged. The IVC is of normal diameter and collapses greater than 50% with a sniff. This suggests a low right atrial pressure of 3 mm Hg. Pericardium/ Pleura There is no pericardial effusion. There is no pleural effusion. MMode/2D Measurements & Calculations LVIDd: 5.0 cm LVOT diam: 2.1 cm LVIDs: 3.0 cm Ao root diam: 3.9 cm FS: 40.0 % asc Aorta Diam: 4.1 cm IVSd: 1.3 cm LVPWd: 1.0 cm LV thurman. diameter/BSA (cm/m^2): 2.2 LV sys. diameter/BSA (cm/m^2): 1.3 LA A2 area: 27.6 cm2 RA long axis: 6.1 cm LA A4 area: 32.1 cm2 LA length (vol): 7.0 cm LA vol: 107.9 ml LA vol index: 46.9 ml/m2 LVLs ap4: 6.6 cm LVLd ap2: 7.5 cm LVLs ap2: 6.4 cm TAPSE_phl: 2.5 cm Doppler Measurements & Calculations Ao V2 max: 118.0 cm/sec LVOT Max Stuart: 91.4 cm/sec Ao V2 mean: 84.0 cm/sec LV V1 max P.3 mmHg Ao max P.0 mmHg LV V1 VTI: 24.3 cm Ao mean P.0 mmHg AGUSTO(I,D): 3.1 cm2 Ao V2 VTI: 27.1 cm AGUSTO(V,D): 2.7 cm2 sev ratio: 0.90 AGUSTO indexed to BSA (cm^2/m^2): 1.3 MV E max stuart: 119.0 cm/sec TR max stuart: 288.0 cm/sec MV A max stuart: 39.2 cm/sec TR max P.2 mmHg MV E/A: 3.0 PA V2 max: 58.2 cm/sec Med Peak E' Stuart: 5.8 cm/sec PA V2 mean: 46.2 cm/sec E/E' med: 20.5 PA mean P.0 mmHg Lat Peak E' Stuart: 7.5 cm/sec PA pr(Accel): 30.0 mmHg E/E' lat: 15.8 E/e' average: 18.1 MV dec time: 0.24 sec SV(LVOT): 84.2 ml AV VR_phl: 0.77 AGUSTO(VTI)/BSA_phl: 1.4 MV P1/2t-pr_phl: 70.0 msec Reading Physician:08:10 PM
== END ==
PROVIDERS: PCP Internal Medicine; Referring Provider Internal Medicine Cardiovascular Disease; Visit Provider Internal Medicine Cardiovascular Disease
DX: I08.1 Rheumatic disorders of both mitral and tricuspid valves (principal); I77.89 Other specified disorders of arteries and arterioles
CPT/HCPCS: 93306